=== PATIENT | male | born 1950 | race Caucasian/White ===

== ENCOUNTER 2016-05-17 13:20 | Inpatient (IN) | payer MEDICARE, MEDICAID, OTHER ==
--- NOTE | 2016-05-17 13:45 | ER Document Report ---
ED Medical Screen (RME) - General Chief Complaint: Slurred Speech Stated Complaint: SLURRED SPEACH Mode of Arrival: Ambulatory Information source: Patient Notes: 66-year-old male presents to the emergency department with a friend who reports patient has had intermittent confusion, slurred speech, left-sided facial droop , and forgetfulness over the last month. Pt denies fever or recent illness, chest pain or sob. TRAVEL OUTSIDE OF THE [place] IN LAST 30 DAYS: No - Related Data Allergies/Adverse Reactions: No Known Allergies Allergy (Verified 05/17/16 13:30) Past Medical History - Social History Frequency of alcohol use: None Drug Abuse: None - Past Medical History Cardiac Medical History: Reports: Hx Heart Attack - possible, Hx Hypercholesterolemia, Hx Hypertension Denies: Hx Coronary Artery Disease Pulmonary Medical History: Reports: Hx Asthma Denies: Hx Bronchitis, Hx COPD, Hx Pneumonia, Hx Tuberculosis Neurological Medical History: Denies: Hx Cerebrovascular Accident, Hx Seizures Renal/ Medical History: Denies: Hx Peritoneal Dialysis Musculoskeltal Medical History: Denies Hx Arthritis Psychiatric Medical History: Reports: Hx Depression Past Surgical History: Denies: Hx Pacemaker - Immunizations Hx Diphtheria, Pertussis, Tetanus Vaccination: No - unsure Physical Exam - Vital signs Vitals: Temp Pulse Resp BP Pulse Ox 98.1 F 103 H 26 H 159/95 H 95 05/17/16 13:25 05/17/16 13:25 05/17/16 13:25 05/17/16 13:25 05/17/16 13:25 - General General appearance: Alert In distress: None - Respiratory Respiratory status: No respiratory distress - Neurological Neuro grossly intact: Yes Mary Coma Scale Eye Opening: Spontaneous Martell Coma Scale Verbal: Oriented Martell Coma Scale Motor: Obeys Commands Mary Coma Scale Total: 15 Cranial nerves: Facial palsy - left Motor strength normal: LUE, RUE Course - Vital Signs Vital signs: Temp Pulse Resp BP Pulse Ox 98.1 F 103 H 26 H 159/95 H 95 05/17/16 13:25 05/17/16 13:25 05/17/16 13:25 05/17/16 13:25 05/17/16 13:25
[2016-05-17 14:33] LABS: ABSOLUTE EOSINOPHILS # (AUTO) 0.1 10^3/uL (0.0-0.6); ABSOLUTE LYMPHOCYTES (AUTO) 1.3 10^3/uL (0.5-4.7); ABSOLUTE MONOCYTES (AUTO) 0.6 10^3/uL (0.1-1.4); ABSOLUTE NEUT (AUTO) 5.3 10^3/uL (1.7-8.2); BASOPHILS % (AUTO) 0.4 % (0-2); EOSINOPHILS % (AUTO) 1.5 % (0-6); HEMATOCRIT 45.7 % (37.9-51.0); HEMOGLOBIN 15.4 g/dL (13.5-17.0); HGB HCT DIFFERENCE 0.5; LYMPHOCYTES % (AUTO) 17.5 % (13-45); MEAN CORPUSCULAR HEMOGLOBIN 32.8 pg (27.0-33.4); MEAN CORPUSCULAR HGB CONC 33.6 g/dL (32.0-36.0); MEAN CORPUSCULAR VOLUME 98 fl (80-97); MONOCYTES % (AUTO) 7.7 % (3-13); RED BLOOD COUNT 4.68 10^6/uL (4.35-5.55); RED CELL DISTRIBUTION WIDTH 13.2 % (11.5-14.0); SEGMENTED NEUTROPHILS % (AUTO) 72.9 % (42-78); WHITE BLOOD COUNT 7.3 10^3/uL (4.0-10.5)
[2016-05-17 14:43] LABS: PROTHROMBIN TIME 11.8 SEC (11.4-15.4)
[2016-05-17 14:44] LABS: PARTIAL THROMBOPLASTIN TIME 29.5 SEC (23.5-35.8)
[2016-05-17 14:47] LABS: ALANINE AMINOTRANSFERASE 28 U/L (21-72); ALBUMIN 3.6 g/dL (3.5-5.0); ALKALINE PHOSPHATASE 71 U/L (38-126); ANION GAP 10 (5-19); ASPARTATE AMINO TRANSFERASE 21 U/L (17-59); BILIRUBIN,TOTAL 0.5 mg/dL (0.2-1.3); BLOOD UREA NITROGEN 18 mg/dL (7-20); CALCIUM 9.8 mg/dL (8.4-10.2); CARBON DIOXIDE 26 mmol/L (22-30); CHLORIDE 107 mmol/L (98-107); CREATINE KINASE 52 U/L (55-170); CREATININE RESULT 0.65 mg/dL (0.52-1.25); GLUCOSE 140 mg/dL (75-110); SODIUM 143.3 mmol/L (137-145)
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
[2016-05-17 14:59] LABS: CREATINE KINASE MB 3.08 ng/mL (<4.55)
[2016-05-17 15:03] LABS: TROPONIN I 0.137 ng/mL
--- NOTE | 2016-05-17 15:20 | EKG REPORT ---
SEVERITY:- ABNORMAL ECG - SINUS RHYTHM PROBABLE LEFT ATRIAL ABNORMALITY RIGHT BUNDLE BRANCH BLOCK PROBABLE INFERIOR INFARCT, AGE INDETERMINATE : Confirmed by: Vivian Laura MD 17-May-2016 15:19:44
[2016-05-17 16:14] LABS: APPEARANCE,URINE SLIGHTLY-CLOUDY; BILIRUBIN,URINE NEGATIVE (NEGATIVE); CALCIUM OXALATE CRYSTALS,URINE MANY /HPF; GLUCOSE, URINE NEGATIVE (NEGATIVE); KETONES,URINE NEGATIVE (NEGATIVE); LEUKOCYTE ESTERASE,URINE NEGATIVE (NEGATIVE); NITRITE,URINE NEGATIVE (NEGATIVE); PROTEIN,URINE NEGATIVE (NEGATIVE); URINE SPECIFIC GRAVITY 1.028; UROBILINOGEN,URINE NEGATIVE mg/dL (<2.0)
[2016-05-17] MEDS ORDERED: ONDANSETRON HCL INJ/PF 4 MG/2 ML SDV IV PRN (17:31)
[2016-05-17] MEDS ORDERED: ACETAMINOPHEN 325 MG TABLET PO PRN (17:31)
[2016-05-17] MEDS ORDERED: METOPROLOL TARTRATE PF/INJ 5 MG/5 ML SDV IV PRN (17:55)
[2016-05-17] MEDS ORDERED: ALBUTEROL SULFATE 0.083% NEB 2.5 MG/3 ML AMPUL NEB PRN (18:18)
--- NOTE | 2016-05-17 18:21 | PDOC H&P ---
History of Present Illness Admission Date/PCP: 05/17/16 15:49 STEVE BO MD Patient complains of: Slurred speech History of Present Illness: ANSELMO CABEZAS is a 66 year old male that was accompanied to the emergency department by a long time friend with four-week history of slurred speech and unsteady gait. Patient is also had some minor behavioral issues and forgetfulness over the same period of time. Patient states that he does not have a history of irregular heart rhythm, however he takes Xarelto 20 mg daily. Upon review of prior visits he does have a history of atrial fibrillation/ flutter. He also has a history of cardiomyopathy with a last documented ejection fraction and 20/15 of 35-40%. EKG shows a sinus rhythm today with a right bundle branch block that is old as compared to EKG from 2015. Patient apparently had a cardiology evaluation in [facility] and was told he had coronary artery disease but had no intervention done. Patient has also had left lower extremity stent placed by Dr. Andres iJmenez. Patient continues to smoke despite coronary artery disease and peripheral vascular disease. Medications listed below have not been accurately verified. Patient's medication list that he has present indicate that he takes Xarelto 20 mg daily, aspirin 81 mg daily, Lasix 20 mg daily, metoprolol tartrate 25 mg twice daily, potassium chloride 10 mEq daily, Lipitor 40 mg daily, multivitamin , Effexor 37.5 g daily Past Medical History Cardiac Medical History: Reports: Myocardial Infarction - possible, Hyperlipidema, Hypertension Denies: Coronary Artery Disease Pulmonary Medical History: Reports: Asthma, Chronic Obstructive Pulmonary Disease (COPD) Denies: Bronchitis, Pneumonia, Tuberculosis Neurological Medical History: Reports: Ischemic CVA Denies: Seizures Musculoskeltal Medical History: Denies: Arthritis Psychiatric Medical History: Reports: Depression Hematology: Denies: Anemia Past Surgical History Past Surgical History: Reports: Vascular Surgery - Left lower extremity stent Denies: Pacemaker Social History Information Source: Patient Lives with: Friend Smoking Status: Current Every Day Smoker Frequency of Alcohol Use: Occasional Hx Recreational Drug Use: Yes Drugs: Marijuana Hx Prescription Drug Abuse: No - Advance Directive Resuscitation Status: Full Code Family History Family History: CAD Parental Family History Reviewed: Yes Children Family History Reviewed: Yes Sibling(s) Family History Reviewed.: Yes Medication/Allergy Allergies/Adverse Reactions: No Known Allergies Allergy (Verified 05/17/16 13:30) Review of Systems Constitutional: ABSENT: chills, fever(s), headache(s), weight gain, weight loss Eyes: ABSENT: visual disturbances Ears: ABSENT: hearing changes Cardiovascular: ABSENT: chest pain, dyspnea on exertion, edema, orthropnea, palpitations Respiratory: ABSENT: cough, hemoptysis Gastrointestinal: ABSENT: abdominal pain, constipation, diarrhea, hematemesis, hematochezia, nausea, vomiting Genitourinary: ABSENT: dysuria, hematuria Musculoskeletal: ABSENT: joint swelling Integumentary: ABSENT: rash, wounds Neurological: PRESENT: abnormal gait, abnormal speech. ABSENT: confusion, dizziness, focal weakness, syncope Psychiatric: ABSENT: anxiety, depression, homidical ideation, suicidal ideation Endocrine: ABSENT: cold intolerance, heat intolerance, polydipsia, polyuria Hematologic/Lymphatic: ABSENT: easy bleeding, easy bruising Physical Exam Vital Signs: Temp Pulse Resp BP Pulse Ox 98.1 F 103 H 26 H 159/95 H 98 05/17/16 13:25 05/17/16 13:25 05/17/16 13:25 05/17/16 13:25 05/17/16 13:32 PHYSICAL EXAM: GENERAL: Appears well, no acute distress HEENT: Normocephalic, no scleral icterus, conjunctiva clear, EOEM intact, PERRLA , moist mucous membranes NECK: trachea midline, no thyromegally RESPIRATORY: Clear to auscultation, no wheezes/rhonchi CARDIAC: Regular rate and rhythm, no murmur/kim/rub ABDOMEN: Soft, no distension, no tenderness, no guarding, normal bowel sounds, negative Fraser sign RECTAL: deferred : deferred EXTREMITIES: No edema, cyanosis, clubbing MUSCULOSKELETAL: No joint swelling or deformity VASCULAR: normal peripheral pulses NEUROLOGIC: Alert, oriented to person/place/time, mild dysarthria, left facial droop, 5/5 strength in all extremities, tactile sensation intact in all extremities SKIN: No rash, no wounds, no worrisome skin lesions PSYCHIATRIC: Normal mood, normal affect Results Laboratory Results: Labs- All tests 24 hr 05/17/16 05/17/16 05/17/16 14:16 14:16 14:16 WBC 7.3 RBC 4.68 Hgb 15.4 Hct 45.7 MCV 98 H MCH 32.8 MCHC 33.6 RDW 13.2 Plt Count 226 Seg Neutrophils % 72.9 Lymphocytes % 17.5 Monocytes % 7.7 Eosinophils % 1.5 Basophils % 0.4 Absolute Neutrophils 5.3 Absolute Lymphocytes 1.3 Absolute Monocytes 0.6 Absolute Eosinophils 0.1 Absolute Basophils 0.0 PT 11.8 INR 0.85 APTT 29.5 Sodium 143.3 Potassium 4.0 Chloride 107 Carbon Dioxide 26 Anion Gap 10 BUN 18 Creatinine 0.65 Est GFR ( Amer) > 60 Est GFR (Non-Af Amer) > 60 Glucose 140 H Calcium 9.8 Total Bilirubin 0.5 Direct Bilirubin 0.0 AST 21 ALT 28 Alkaline Phosphatase 71 Creatine Kinase 52 L CK-MB (CK-2) Troponin I Total Protein 7.0 Albumin 3.6 Urine Color Urine Appearance Urine pH Ur Specific [place] Urine Protein Urine Glucose (UA) Urine Ketones Urine Blood Urine Nitrite Urine Bilirubin Urine Urobilinogen Ur Leukocyte Esterase Urine WBC (Auto) Urine RBC (Auto) U Hyaline Cast (Auto) Squamous Epi Cells Auto Calcium Oxalate Cr Auto Urine Mucus (Auto) Urine Ascorbic Acid 05/17/16 05/17/16 14:16 15:42 WBC RBC Hgb Hct MCV MCH MCHC RDW Plt Count Seg Neutrophils % Lymphocytes % Monocytes % Eosinophils % Basophils % Absolute Neutrophils Absolute Lymphocytes Absolute Monocytes Absolute Eosinophils Absolute Basophils PT INR APTT Sodium Potassium Chloride Carbon Dioxide Anion Gap BUN Creatinine Est GFR ( Amer) Est GFR (Non-Af Amer) Glucose Calcium Total Bilirubin Direct Bilirubin AST ALT Alkaline Phosphatase Creatine Kinase CK-MB (CK-2) 3.08 Troponin I 0.137 Total Protein Albumin Urine Color YELLOW Urine Appearance SLIGHTLY-CLOUDY Urine pH 5.0 Ur Specific [place] 1.028 Urine Protein NEGATIVE Urine Glucose (UA) NEGATIVE Urine Ketones NEGATIVE Urine Blood SMALL H Urine Nitrite NEGATIVE Urine Bilirubin NEGATIVE Urine Urobilinogen NEGATIVE Ur Leukocyte Esterase NEGATIVE Urine WBC (Auto) 3 Urine RBC (Auto) 4 U Hyaline Cast (Auto) 7 Squamous Epi Cells Auto <1 Calcium Oxalate Cr Auto MANY Urine Mucus (Auto) MANY Urine Ascorbic Acid NEGATIVE EKG Comments: Sinus rhythm, old right bundle branch block, left atrial abnormality Impressions: Chest X-Ray 05/17/16 13:32 IMPRESSION: No acute findings Head CT 05/17/16 13:35 IMPRESSION: Nonhemorrhagic early subacute right frontal infarct Motion artifact Assessment & Plan - Diagnosis (1) Acute ischemic stroke Is this a current diagnosis for this admission?: YesPlan: Patient will be admitted to telemetry unit on stroke protocol. Continue aspirin and Xarelto. Continue Lipitor. PT/OT evaluation. Check MRI of the brain. Check carotid Doppler. (2) Paroxysmal atrial fibrillation Is this a current diagnosis for this admission?: YesPlan: Continue metoprolol for heart rate control. Patient currently in sinus rhythm. Continue Xarelto. (3) Hypertension Is this a current diagnosis for this admission?: Yes (4) Tobacco abuse Is this a current diagnosis for this admission?: Yes (5) Ambulatory dysfunction Is this a current diagnosis for this admission?: Yes (6) Coronary artery disease Qualifiers: Coronary Disease-Associated Artery/Lesion type: [place] artery [place] vs. transplanted heart: [place] heart Associated angina: without angina Qualified Code(s): I25.10 - Atherosclerotic heart disease of [place] coronary artery without angina pectoris Is this a current diagnosis for this admission?: YesPlan: Continue aspirin, beta regine, Lipitor. Patient has equivocal troponin. He is chest pain-free. Check serial cardiac enzymes. (7) Peripheral vascular disease Is this a current diagnosis for this admission?: YesPlan: Patient has had prior left lower extremity stent placed by Dr. Jimenez in [facility]. Continue current medications. Patient is discontinue smoking. (8) CHF (congestive heart failure) Qualifiers: Congestive heart failure type: systolic Congestive heart failure chronicity: chronic Qualified Code(s): I50.22 - Chronic systolic ( congestive) heart failure Is this a current diagnosis for this admission?: YesPlan: Patient has chronic decompensated congestive heart failure with last known ejection fraction of 35-40% on echocardiogram in 2014. Continue metoprolol, lisinopril, Lasix. (9) COPD (chronic obstructive pulmonary disease) Is this a current diagnosis for this admission?: Yes - Time Time Spent: Greater than 70 Minutes
[2016-05-17 20:00] LABS: CREATINE KINASE MB 2.51 ng/mL (<4.55); TROPONIN I 0.149 ng/mL
[2016-05-17] MEDS ORDERED: ATORVASTATIN CALCIUM 40 MG TABLET PO SCH (22:00)
[2016-05-17] MEDS ORDERED: HEPARIN SOD (PORCINE) 5,000 UNIT/ML 1 ML SYRINGE SUBCUT SCH (22:00)
[2016-05-17] MEDS: METOPROLOL TARTRATE 25 MG TABLET PO SCH (23:31)
[2016-05-18 01:05] LABS: CREATINE KINASE MB 1.99 ng/mL (<4.55)
[2016-05-18 01:09] LABS: TROPONIN I 0.136 ng/mL
[2016-05-18 06:42] LABS: ABSOLUTE EOSINOPHILS # (AUTO) 0.1 10^3/uL (0.0-0.6); ABSOLUTE LYMPHOCYTES (AUTO) 1.2 10^3/uL (0.5-4.7); ABSOLUTE MONOCYTES (AUTO) 0.6 10^3/uL (0.1-1.4); BASOPHILS % (AUTO) 0.4 % (0-2); EOSINOPHILS % (AUTO) 1.4 % (0-6); HEMATOCRIT 39.2 % (37.9-51.0); HEMOGLOBIN 13.5 g/dL (13.5-17.0); HGB HCT DIFFERENCE 1.3; MEAN CORPUSCULAR HEMOGLOBIN 33.4 pg (27.0-33.4); MEAN CORPUSCULAR HGB CONC 34.4 g/dL (32.0-36.0); MEAN CORPUSCULAR VOLUME 97 fl (80-97); MONOCYTES % (AUTO) 8.6 % (3-13); RED BLOOD COUNT 4.03 10^6/uL (4.35-5.55); RED CELL DISTRIBUTION WIDTH 13.3 % (11.5-14.0); SEGMENTED NEUTROPHILS % (AUTO) 72.6 % (42-78); WHITE BLOOD COUNT 6.9 10^3/uL (4.0-10.5)
[2016-05-18 06:53] LABS: ANION GAP 9 (5-19); BLOOD UREA NITROGEN 22 mg/dL (7-20); CALCIUM 9.3 mg/dL (8.4-10.2); CARBON DIOXIDE 26 mmol/L (22-30); CHLORIDE 106 mmol/L (98-107); CHOLESTEROL 214.73 mg/dL (0-200); CREATINE KINASE 41 U/L (55-170); CREATININE RESULT 0.68 mg/dL (0.52-1.25); Direct HDL 44 mg/dL (>40); GLUCOSE 120 mg/dL (75-110); POTASSIUM 4.2 mmol/L (3.6-5.0); SODIUM 140.7 mmol/L (137-145); TRIGLYCERIDES 85 mg/dL (<150)
[2016-05-18 07:04] LABS: DIRECT LDL 158 mg/dL (<100)
[2016-05-18 07:05] LABS: CREATINE KINASE MB 2.03 ng/mL (<4.55)
[2016-05-18 07:13] LABS: TROPONIN I 0.118 ng/mL
[2016-05-18] MEDS ORDERED: POTASSIUM CHLORIDE 10 MEQ TABLET.SA PO SCH (10:00)
[2016-05-18] MEDS ORDERED: ASPIRIN 81 MG TABLET, ENT COATED PO SCH (10:00)
[2016-05-18] MEDS ORDERED: FUROSEMIDE 20 MG TABLET PO SCH (10:00)
[2016-05-18] MEDS ORDERED: VENLAFAXINE HCL 37.5 MG CAP.SR.24H PO SCH (10:00)
[2016-05-18] MEDS ORDERED: LISINOPRIL 10 MG TABLET PO SCH (10:00)
[2016-05-18] MEDS: METOPROLOL TARTRATE 25 MG TABLET PO SCH (10:57)
--- NOTE | 2016-05-18 16:00 | PDOC PROGRESS REPORT ---
Subjective Progress Note for:: 05/18/16 Subjective:: Todd is a 66-year-old man who was admitted on 05/17/2016 with a four-week history of slurred speech, unsteady gait, forgetfulness, and minor behavioral issues. Has a past history of coronary artery disease, peripheral arterial disease and atrial fibrillation. Home medications include aspirin, beta regine Xarelto. CT of the brain showed a nonhemorrhagic right frontal infarct which was early or subacute. The MRI seems to confirm that. This afternoon, the patient was found by the ICU nurse to be ambulating the epperson and smoking a cigarette. Physical Exam Vital Signs: Temp Pulse Resp BP Pulse Ox 98.6 F 55 L 16 153/72 H 96 05/18/16 12:00 05/18/16 12:00 05/18/16 12:00 05/18/16 12:00 05/18/16 12:00 Intake & Output 05/17/16 05/18/16 05/19/16 06:59 06:59 06:59 Intake Total 150 Output Total 150 Balance 0 Weight 112.4 kg General appearance: PRESENT: no acute distress, well-developed, well-nourished Head exam: PRESENT: atraumatic, normocephalic Eye exam: PRESENT: conjunctiva pink, EOMI, PERRLA. ABSENT: scleral icterus Ear exam: PRESENT: normal external ear exam Mouth exam: PRESENT: moist, tongue midline Neck exam: PRESENT: full ROM. ABSENT: carotid bruit, JVD, lymphadenopathy, thyromegaly Respiratory exam: PRESENT: clear to auscultation teresa, unlabored. ABSENT: rales , rhonchi, wheezes Cardiovascular exam: PRESENT: RRR. ABSENT: diastolic murmur, rubs, systolic murmur Pulses: PRESENT: normal dorsalis pedis pul Vascular exam: PRESENT: normal capillary refill GI/Abdominal exam: PRESENT: normal bowel sounds, soft. ABSENT: distended, guarding, mass, organolmegaly, rebound, tenderness Rectal exam: PRESENT: deferred Extremities exam: PRESENT: full ROM. ABSENT: calf tenderness, clubbing, pedal edema Musculoskeletal exam: PRESENT: ambulatory Neurological exam: PRESENT: alert, awake, other - Dysarthria Psychiatric exam: PRESENT: other - Inconsistently follows commands.. ABSENT: homicidal ideation, suicidal ideation Skin exam: PRESENT: dry, intact, warm. ABSENT: cyanosis, rash Results Laboratory Results: 05/18/16 06:30 05/18/16 06:30 05/18/16 05/18/16 06:30 06:30 WBC 6.9 RBC 4.03 L Hgb 13.5 Hct 39.2 MCV 97 MCH 33.4 MCHC 34.4 RDW 13.3 Plt Count 224 Seg Neutrophils % 72.6 Lymphocytes % 17.0 Monocytes % 8.6 Eosinophils % 1.4 Basophils % 0.4 Absolute Neutrophils 5.0 Absolute Lymphocytes 1.2 Absolute Monocytes 0.6 Absolute Eosinophils 0.1 Absolute Basophils 0.0 Sodium 140.7 Potassium 4.2 Chloride 106 Carbon Dioxide 26 Anion Gap 9 BUN 22 H Creatinine 0.68 Est GFR ( Amer) > 60 Est GFR (Non-Af Amer) > 60 Glucose 120 H Calcium 9.3 Triglycerides 85 Cholesterol 214.73 H LDL Cholesterol Direct 158 H VLDL Cholesterol 17.0 HDL Cholesterol 44 05/17/16 05/17/16 05/18/16 19:10 19:10 00:20 Creatine Kinase 52 L 52 L CK-MB (CK-2) 2.51 Troponin I 0.149 05/18/16 05/18/16 05/18/16 00:20 06:30 06:30 Creatine Kinase 41 L CK-MB (CK-2) 1.99 2.03 Troponin I 0.136 0.118 Impressions: Head MRI 05/17/16 00:00 IMPRESSION: Positive for acute or sub-acute infarction in the right frontotemporal region. Chest X-Ray 05/17/16 13:32 IMPRESSION: No acute findings Head CT 05/17/16 13:35 IMPRESSION: Nonhemorrhagic early subacute right frontal infarct Motion artifact Carotid Doppler Study 05/18/16 00:00 IMPRESSION: Bilateral internal carotid artery occlusion. Atherosclerotic plaque at the distal left common carotid artery extends into the proximal left external carotid artery. There is greater than 70% stenosis of the distal left common carotid artery, and greater than 70% stenosis of the left external carotid artery Assessment & Plan - Diagnosis (1) Acute ischemic stroke Is this a current diagnosis for this admission?: YesPlan: This right frontotemporal nonhemorrhagic stroke clinically occurred about one month ago. This explains his four-week history of slurred speech, unsteady gait , forgetfulness and minor behavioral issues. He is already under proper treatment with aspirin, Xarelto, and statin medication. (2) Occlusion and stenosis of bilateral carotid arteries Is this a current diagnosis for this admission?: YesPlan: The patient is already on aspirin, Xarelto, and a statin. The patient has a stroke which clinically occurred about one month ago. He will be referred for outpatient vascular surgical consultation. (3) Ambulatory dysfunction Is this a current diagnosis for this admission?: YesPlan: PT, OT and ST evaluations. (4) Coronary artery disease Qualifiers: Coronary Disease-Associated Artery/Lesion type: [place] artery [place] vs. transplanted heart: [place] heart Associated angina: without angina Qualified Code(s): I25.10 - Atherosclerotic heart disease of [place] coronary artery without angina pectoris Is this a current diagnosis for this admission?: YesPlan: Continue current Rx. (5) Hypertension Is this a current diagnosis for this admission?: YesPlan: Satisfactory control. Continue current Rx. (6) Paroxysmal atrial fibrillation Is this a current diagnosis for this admission?: YesPlan: Rate controlled. Continue current Rx. (7) Peripheral vascular disease Is this a current diagnosis for this admission?: YesPlan: Continue aspirin and statin Rx. (8) Tobacco abuse Is this a current diagnosis for this admission?: YesPlan: The patient was advised to stop smoking. (9) CHF (congestive heart failure) Qualifiers: Congestive heart failure type: systolic Congestive heart failure chronicity: chronic Qualified Code(s): I50.22 - Chronic systolic ( congestive) heart failure Is this a current diagnosis for this admission?: YesPlan: Compensated. Continue current Rx. (10) COPD (chronic obstructive pulmonary disease) Is this a current diagnosis for this admission?: No - Time Time Spent with patient: 25-34 minutes Smoking Cessation Education: 3 to 10 minutes Medications reviewed and adjusted accordingly: Yes Anticipated discharge: Home Within: within 48 hours
[2016-05-18 16:11] VITALS: BP 125/68
[2016-05-18] MEDS ORDERED: RIVAROXABAN 10 MG TABLET PO SCH (17:00)
== END 2016-05-18 19:15 | disposition home or self-care (01) | DRG 67 ==
LOC: ER 13:20 → EH 15:49 → UNDOADMIN 15:49 → EH 17:32 → ICU 05-18 10:16
PROVIDERS: ADMIT Family Medicine; ATTEND Family Medicine
DX: I65.23 Occlusion and stenosis of bilateral carotid arteries (principal); I63.9 Cerebral infarction, unspecified; I50.22 Chronic systolic (congestive) heart failure; I42.9 Cardiomyopathy, unspecified; R47.81 Slurred speech; I25.10 Atherosclerotic heart disease of native coronary artery without angina pectoris; I48.0 Paroxysmal atrial fibrillation; I10 Essential (primary) hypertension; E78.5 Hyperlipidemia, unspecified; J44.9 Chronic obstructive pulmonary disease, unspecified; I73.9 Peripheral vascular disease, unspecified; R26.9 Unspecified abnormalities of gait and mobility; F17.210 Nicotine dependence, cigarettes, uncomplicated; I25.2 Old myocardial infarction; Z79.01 Long term (current) use of anticoagulants; Z86.73 Personal history of transient ischemic attack (TIA), and cerebral infarction without residual deficits
CPT/HCPCS: 36415; 70450; 70551; 71020; 80048; 80053; 80061; 81001; 82550; 82553; 84484; 85025; 85610; 85730; 93005; 93010; 93880; 99291; G8978-GP; G8979-GP; G8980-GP; G8987-GO; G8988-GO; G8989-GO; G8999-GN; G9186-GN; J3490

== ENCOUNTER 2016-08-15 21:01 | Emergency (ER) | payer MEDICARE, OTHER ==
--- NOTE | 2016-08-15 22:29 | RADIOLOGY REPORT (SQ) ---
EXAM DESCRIPTION: HAND LEFT 3 VIEWS COMPLETED DATE/TIME: 08/15/2016 10:16 pm REASON FOR STUDY: fall COMPARISON: None. EXAM PARAMETERS: NUMBER OF VIEWS: Three views. TECHNIQUE: AP, lateral and oblique radiographic images acquired of the left hand. LIMITATIONS: None. FINDINGS: MINERALIZATION: Normal. BONES: No acute fracture or dislocation. No worrisome bone lesions. JOINTS: There is joint space narrowing in the proximal and distal interphalangeal joints as well is a carpal bones. SOFT TISSUES: There is diffuse soft tissue swelling. OTHER: No other significant finding. IMPRESSION: Diffuse soft tissue swelling. Degenerative changes. No acute fracture or dislocation. TECHNICAL DOCUMENTATION: JOB ID: [id number] [email or web address]- All Rights Reserved
[2016-08-15] MEDS ORDERED: CEPHALEXIN 500 MG CAPSULE PO ONE (23:48)
--- NOTE | 2016-08-15 23:51 | ER Document Report ---
ED General - General Chief Complaint: Hand Injury Stated Complaint: HAND SWELLING Time Seen by Provider: 08/15/16 23:03 Notes: Patient is a 66-year-old male with past medical history of a prior stroke, active tobacco abuser, remote history of a lower extremity DVT who presents with approximately 1 week of left upper extremity swelling and pain. Apparently initially triage patient reported that he had had a mechanical fall but to me he states "I do not actually know what happened I just assumed I fell because it was so swollen." The patient and his friend at the bedside admit that he has difficulty with memory at baseline after the stroke. He has not noted that anything seems to improve or worsens swelling of his extremity. He does note a dull, constant throbbing pain to the area. He has not seen a primary care doctor regarding today's concerns. Denies any history of similar symptoms in the past. TRAVEL OUTSIDE OF THE [place] IN LAST 30 DAYS: No - Related Data Allergies/Adverse Reactions: No Known Allergies Allergy (Verified 05/17/16 13:30) Past Medical History - General Information source: Patient - Social History Smoking Status: Current Every Day Smoker Chew tobacco use (# tins/day): No Frequency of alcohol use: Occasional Drug Abuse: Marijuana Family History: Reviewed & Not Pertinent Patient has suicidal ideation: No Patient has homicidal ideation: No - Past Medical History Cardiac Medical History: Reports: Hx Heart Attack - possible, Hx Hypercholesterolemia, Hx Hypertension Denies: Hx Coronary Artery Disease Pulmonary Medical History: Reports: Hx Asthma Denies: Hx Bronchitis, Hx COPD, Hx Pneumonia, Hx Tuberculosis Neurological Medical History: Denies: Hx Cerebrovascular Accident, Hx Seizures Renal/ Medical History: Denies: Hx Peritoneal Dialysis Musculoskeltal Medical History: Denies Hx Arthritis Psychiatric Medical History: Reports: Hx Depression Past Surgical History: Reports: Hx Vascular Surgery - Left lower extremity stent. Denies: Hx Pacemaker - Immunizations Hx Diphtheria, Pertussis, Tetanus Vaccination: No - unsure Hx Pneumococcal Vaccination: 12/24/11 Review of Systems - Review of Systems Notes: Constitutional: Negative for fever. HENT: Negative for sore throat. Eyes: Negative for visual changes. Cardiovascular: Negative for chest pain. Respiratory: Negative for shortness of breath. Gastrointestinal: Negative for abdominal pain, vomiting or diarrhea. Genitourinary: Negative for dysuria. Musculoskeletal: Positive for left upper extremity swelling and pain Skin: Negative for rash. Neurological: Negative for headaches, weakness or numbness. 10 point ROS negative except as marked above and in HPI. Physical Exam - Vital signs Vitals: Temp Pulse Resp BP Pulse Ox 98.6 F 96 20 174/95 H 95 08/15/16 21:27 08/15/16 21:27 08/15/16 21:27 08/15/16 21:27 08/15/16 21:27 Interpretation: Hypertensive Notes: PHYSICAL EXAMINATION: GENERAL: Well-appearing, well-nourished and in no acute distress. HEAD: Atraumatic, normocephalic. EYES: Pupils equal round and reactive to light, extraocular movements intact, sclera anicteric, conjunctiva are normal. ENT: nares patent, oropharynx clear without exudates. Moist mucous membranes. NECK: Normal range of motion, supple without lymphadenopathy LUNGS: Breath sounds clear to auscultation bilaterally and equal. No wheezes rales or rhonchi. HEART: Regular rate and rhythm without murmurs ABDOMEN: Soft, nontender, normoactive bowel sounds. No guarding, no rebound. No masses appreciated. EXTREMITIES: The entire left hand, forearm extending just above the elbow is erythematous, swollen but not significantly painful to palpation. No crepitus. Compartments feel sof. No findings on the right upper extremity of the bilateral lower extremities. NEUROLOGICAL: No focal neurological deficits. Moves all extremities spontaneously and on command. PSYCH: Normal mood, normal affect. SKIN: Warm, Dry, normal turgor, no rashes or lesions noted. Course - Re-evaluation Re-evalutation: 08/15/16 23:48 Patient presents with diffuse left upper extremity swelling to the level just above the elbow area is diffusely erythematous with mild pain. She did have a history of a CVA with residual left-sided weakness which she states is unchanged today. He does have a history of a lower extremity DVT in the past but is not currently on any anticoagulation. Contrary to triage note, patient states he did not actually fall that he is aware of or can recall but merely assumed that he had fallen due to his hand being swollen. There is no evidence of trauma on exam and his x-rays without evidence of an acute fracture. Primary differential considerations at this point are a cellulitis versus a possible upper extremity DVT. I will start patient on cephalexin here in the emergency department [place]. I have asked that he please return in the emergency department in the morning for an upper extremity ultrasound to definitively exclude a DVT. At this time will discharge with return precautions and follow-up recommendations. Verbal discharge instructions given a the bedside and opportunity for questions given. Medication warnings reviewed. Patient is in agreement with this plan and has verbalized understanding of return precautions and the need for primary care follow-up in the next 24-72 hours. - Vital Signs Vital signs: Temp Pulse Resp BP Pulse Ox 98.6 F 91 17 155/89 H 97 08/15/16 21:27 08/16/16 00:04 08/16/16 00:04 08/16/16 00:04 08/16/16 00:04 - Diagnostic Test Radiology reviewed: Image reviewed, Reports reviewed Radiology results interpreted by me: 08/16/16 02:43 Left hand x-ray: No acute fracture, diffuse soft tissue swelling Discharge - Discharge Clinical Impression: Left upper extremity swelling Condition: Good Disposition: HOME, SELF-CARE Additional Instructions: Please return to the emergency department in the morning for an ultrasound of your left arm to exclude a clot as the source of the swelling. Please take the antibiotics as directed and if the ultrasound is normal tomorrow complete the antibiotic course. Please return sooner if you develop worsening pain, fever greater than 101F, or any other symptoms that are worrisome to you. Prescriptions: Cephalexin Monohydrate [Keflex 500 mg Capsule] 500 mg PO QID #28 capsule
[2016-08-16 00:05] VITALS: BP 155/89
== END 2016-08-16 00:04 | disposition home or self-care (01) ==
LOC: ER 21:01
DX: M79.89 Other specified soft tissue disorders (principal); Z86.718 Personal history of other venous thrombosis and embolism; F17.200 Nicotine dependence, unspecified, uncomplicated
CPT/HCPCS: 99283; 73130; A9270

== ENCOUNTER → 2016-08-17 | Outpatient (CLI) | payer MEDICARE ==
--- NOTE | 2016-08-17 12:52 | XCELERA REPORT ---
[address] [address] Upper Extremity Venous Evaluation Name: ANSELMO CABEZAS Age: 66 yrs Gender: Male : 1950 Patient Status: Outpatient Patient Location: Study Date: 08/17/2016 10:47 AM Procedure: Unilateral duplex scan of the left upper extremity veins was performed, including responses to compression and other maneuvers. Reason For Study: LUE SWELLING Ordering Physician: LAURENT MYERS Performed By: Brenda Hubbard Left Sided Venous Evaluation Normal vessel filling wall to wall, compression and augmentation as well as Colour flow down to the forearm veins. Critical Findings Discussed with Dr Myers at about 1000. Interpretation Summary Normal compression, patency, spontaneous and phasic flow of the left upper extremity veins. : LAURENT MYERS > Aldair Castillo
== END ==
LOC: SP 10:37
PROVIDERS: ATTEND Emergency Medicine
DX: M79.89 Other specified soft tissue disorders (principal)
CPT/HCPCS: 93971

== ENCOUNTER 2017-12-12 20:09 | Inpatient (IN) | payer MEDICARE ==
--- NOTE | 2017-12-12 20:58 | RADIOLOGY REPORT (SQ) ---
EXAM DESCRIPTION: CHEST SINGLE VIEW COMPLETED DATE/TIME: 12/12/2017 8:46 pm REASON FOR STUDY: hypoxia COMPARISON: 05/17/2016 TECHNIQUE: Single frontal radiographic view of the chest acquired. NUMBER OF VIEWS: One view. LIMITATIONS: None. FINDINGS: LUNGS AND PLEURA: No pneumothorax. Right basilar and left mid lung patchy airspace opacit ies. No significant pleural effusion. MEDIASTINUM AND HILAR STRUCTURES: Stable. HEART AND VASCULAR STRUCTURES: Stable. BONES: No acute findings. HARDWARE: None in the chest. OTHER: No other significant finding. IMPRESSION: Right basilar and left mid lung patchy airspace opacities. TECHNICAL DOCUMENTATION: JOB ID: [id number] [email or web address]- All Rights Reserved Reading location - IP/workstation name: [email or web address]
[2017-12-12 20:59] LABS: ABSOLUTE EOSINOPHILS # (AUTO) 0.1 10^3/uL (0.0-0.6); ABSOLUTE LYMPHOCYTES (AUTO) 0.5 10^3/uL (0.5-4.7); ABSOLUTE MONOCYTES (AUTO) 0.6 10^3/uL (0.1-1.4); ABSOLUTE NEUT (AUTO) 7.6 10^3/uL (1.7-8.2); BASOPHILS % (AUTO) 0.3 % (0-2); EOSINOPHILS % (AUTO) 1.6 % (0-6); HEMATOCRIT 49.8 % (37.9-51.0); HEMOGLOBIN 16.6 g/dL (13.5-17.0); LYMPHOCYTES % (AUTO) 5.2 % (13-45); MEAN CORPUSCULAR HGB CONC 33.3 g/dL (32.0-36.0); MEAN CORPUSCULAR VOLUME 96 fl (80-97); PLATELET COUNT 178 10^3/uL (150-450); RED BLOOD COUNT 5.18 10^6/uL (4.35-5.55); RED CELL DISTRIBUTION WIDTH 15.2 % (11.5-14.0); SEGMENTED NEUTROPHILS % (AUTO) 85.9 % (42-78); TOTAL CELLS COUNTED % (AUTO) 100 %; WHITE BLOOD COUNT 8.8 10^3/uL (4.0-10.5)
[2017-12-12 21:18] LABS: ALANINE AMINOTRANSFERASE 22 U/L (21-72); ALBUMIN 3.3 g/dL (3.5-5.0); ALKALINE PHOSPHATASE 54 U/L (38-126); ANION GAP 6 (5-19); ASPARTATE AMINO TRANSFERASE 22 U/L (17-59); BILIRUBIN,DIRECT 0.6 mg/dL (0.0-0.4); BILIRUBIN,TOTAL 1.2 mg/dL (0.2-1.3); BLOOD UREA NITROGEN 23 mg/dL (7-20); CALCIUM 9.1 mg/dL (8.4-10.2); CARBON DIOXIDE 34 mmol/L (22-30); CHLORIDE 101 mmol/L (98-107); GLUCOSE 111 mg/dL (75-110); POTASSIUM 3.5 mmol/L (3.6-5.0); SODIUM 140.8 mmol/L (137-145); TOTAL PROTEIN 6.6 g/dL (6.3-8.2)
--- NOTE | 2017-12-12 21:39 | RADIOLOGY REPORT (SQ) ---
CT head without contrast on 12/12/2017 at 8:48 PM CLINICAL INDICATION: Weakness, history of stroke TECHNIQUE: Multiple axial images are obtained throughout the head without the administration of contrast. This exam was performed according to our departmental dose-optimization program, which includes automated exposure control, adjustment of the mA and/or kV according to patient size and/or use of iterative reconstruction technique. Total DLP is 1028.78 mGy*cm. COMPARISON: None FINDINGS: There are old bilateral frontal infarcts. There is an old right basal ganglia infarct. There is generalized cerebral atrophy. There is no hydrocephalus. There is no CT evidence of acute infarct. There is no hemorrhage. There are no abnormal extra-axial fluid collections. There is no mass, mass effect or midline shift. No bony abnormality is noted. IMPRESSION: 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
[2017-12-12] MEDS ORDERED: LEVOFLOXACIN 750 MG/D5W RTU 750 MG/150 ML RTUPB IV ONE (21:42)
[2017-12-12] MEDS ORDERED: RINGERS SOLUTION,LACTATED 1,000 ML IV ONE (21:48)
[2017-12-12] MEDS ORDERED: DEXTROSE 5%-WATER 500 ML with AMIODARONE HCL 900 MG IV PRN ×2 (22:01)
[2017-12-12] MEDS ORDERED: AMIODARONE HCL 150 MG in DEXTROSE 5%-WATER 100 ML IV ONE (22:01)
--- NOTE | 2017-12-12 22:02 | ER Document Report ---
ED General - General Chief Complaint: Weakness Stated Complaint: WEAKNESS Time Seen by Provider: 12/12/17 20:19 Notes: Patient is a 67-year-old male with past medical history of hypertension, hyperlipidemia, atrial fibrillation, ongoing tobacco abuse who presents with cough and "increased weakness per my neighbor". The patient reports that he has had a cough for the past 2-3 days. He states that his neighbor was worried that he could be having a recurrent stroke as he seemed more weak than normal. Urinalysis shows patient to be saturating 86% on room air and does not normally have an oxygen requirement. The patient reports that he has been taking all medications as directed. He denies any increased weakness from his baseline. He denies a fever at home. No nausea, vomiting, headache, neck pain or altered mental status. Nothing improves or worsens his symptoms. He denies any associated chest pain. TRAVEL OUTSIDE OF THE [place] IN LAST 30 DAYS: No - Related Data Allergies/Adverse Reactions: No Known Allergies Allergy (Verified 05/17/16 13:30) Past Medical History - General Information source: Patient - Social History Smoking Status: Current Every Day Smoker Frequency of alcohol use: None Drug Abuse: None Lives with: Alone Family History: Reviewed & Not Pertinent Patient has suicidal ideation: No Patient has homicidal ideation: No - Past Medical History Cardiac Medical History: Reports: Hx Heart Attack - possible, Hx Hypercholesterolemia, Hx Hypertension Denies: Hx Coronary Artery Disease Pulmonary Medical History: Reports: Hx Asthma Denies: Hx Bronchitis, Hx COPD, Hx Pneumonia, Hx Tuberculosis Neurological Medical History: Denies: Hx Cerebrovascular Accident, Hx Seizures Renal/ Medical History: Denies: Hx Peritoneal Dialysis Musculoskeletal Medical History: Denies Hx Arthritis Psychiatric Medical History: Reports: Hx Depression Past Surgical History: Reports: Hx Vascular Surgery - Left lower extremity stent. Denies: Hx Pacemaker - Immunizations Hx Diphtheria, Pertussis, Tetanus Vaccination: No - unsure Hx Pneumococcal Vaccination: 12/24/11 Review of Systems - Review of Systems Notes: Constitutional: Negative for fever. HENT: Negative for sore throat. Eyes: Negative for visual changes. Cardiovascular: Negative for chest pain. Respiratory: Positive for shortness of breath and cough Gastrointestinal: Negative for abdominal pain, vomiting or diarrhea. Genitourinary: Negative for dysuria. Musculoskeletal: Negative for back pain. Skin: Negative for rash. Neurological: Negative for headaches, weakness or numbness. 10 point ROS negative except as marked above and in HPI. Physical Exam - Vital signs Vitals: Resp BP Pulse Ox 11 L 143/71 H 97 12/12/17 20:19 12/12/17 20:19 12/12/17 20:19 Interpretation: Tachypneic Notes: PHYSICAL EXAMINATION: GENERAL: Appears somewhat unwell, no acute distress HEAD: Atraumatic, normocephalic. EYES: Pupils equal round and reactive to light, extraocular movements intact, sclera anicteric, conjunctiva are normal. ENT: nares patent, oropharynx clear without exudates. Moderately dry mucous membranes. NECK: Normal range of motion, supple without lymphadenopathy LUNGS: Mild tachypnea. Wheezes at the right base and left upper lobe. HEART: Irregular regular tachycardia without murmurs ABDOMEN: Soft, nontender, normoactive bowel sounds. No guarding, no rebound. No masses appreciated. EXTREMITIES: Normal range of motion, no pitting or edema. No cyanosis. NEUROLOGICAL: Left facial droop. Moves all extremities spontaneously and on command. PSYCH: Somewhat lethargic but wakes relatively easily, oriented 3 SKIN: Warm, Dry, normal turgor, no rashes or lesions noted. Course - Re-evaluation Re-evalutation: 12/12/17 21:55 Patient presents quite somnolent, wakes up and answers all orientations quickly but rapidly falls back off to sleep. He does wake to loud voice or mildly noxious stimuli but apparently initial staff noted that the patient was not like this at time of presentation. A CT of the head was obtained and does not show any evidence of acute intercranial bleed. The patient was noted to be hypoxic for EMS, 86% on room air and does not normally have an oxygen requirement. A chest x-ray does show a bilateral pneumonia. His initial troponin is also noted to be elevated at 0.106 most probably due to demand mediated ischemia. The patient is also noted to have multiple nonsustained runs of ventricular tachycardia. These are happening quite frequently and he will therefore be started on amiodarone after a load of 150 mg. Will also obtain a stat venous blood gas to evaluate for CO2 retention and immediately order BiPAP as I am concerned the patient is having lower respiratory drive in the setting of supplemental oxygen. The patient is in guarded condition, will require frequent reassessments. 12/12/17 22:37 Venous blood gas does show chronic CO2 retention without evidence of respiratory acidosis. Patient will continue on BiPAP given his altered mental status. Amiodarone infusion has been initiated. Will continue to observe. Patient remains in guarded condition 12/12/17 23:38 Patient has not had any additional runs of ventricular tachycardia since starting the amiodarone infusion. Patient is more alert now on BiPAP. I have discussed this case with Dr. Dan who had requested that I speak to the emergency veterinary assistant on-call Dr. Lomas. I did speak to Dr. Lomas he agreed with ongoing amiodarone infusion and agrees with the patient is appropriate for admission at this hospital. - Vital Signs Vital signs: Temp Pulse Resp BP Pulse Ox 97.7 F 91 12 108/55 L 96 12/12/17 20:20 12/13/17 00:00 12/13/17 00:23 12/13/17 00:01 12/13/17 00:23 - Laboratory Result Diagrams: 12/12/17 20:36 12/12/17 20:36 Laboratory results interpreted by me: 12/12/17 12/12/17 12/12/17 20:36 20:36 20:36 RDW 15.2 H Seg Neutrophils % 85.9 H Lymphocytes % 5.2 L VBG pCO2 VBG HCO3 Potassium 3.5 L Carbon Dioxide 34 H BUN 23 H Glucose 111 H Direct Bilirubin 0.6 H NT-Pro-B Natriuret Pep 7020 H Albumin 3.3 L 12/12/17 21:55 RDW Seg Neutrophils % Lymphocytes % VBG pCO2 69.3 H* VBG HCO3 34.9 H Potassium Carbon Dioxide BUN Glucose Direct Bilirubin NT-Pro-B Natriuret Pep Albumin - Diagnostic Test Radiology reviewed: Image reviewed, Reports reviewed Radiology results interpreted by me: 12/12/17 21:59 Chest x-ray: Bilateral lower lobe pneumonia Critical Care Note - Critical Care Note Total time excluding time spent on procedures (mins): 40 Comments: Critical care time spent obtaining history from patient or surrogate, discussions with consultants, development of treatment plan with patient or surrogate, evaluation of patient's response to treatment, examination of patient , ordering and performing treatments and interventions, ordering and review of laboratory studies, re-evaluation of patient's condition, ordering and review of radiographic studies and review of old charts Discharge - Discharge Clinical Impression: Ventricular tachycardia, Hypoxia Bilateral pneumonia Qualifiers: Pneumonia type: due to unspecified organism Lung location: unspecified part of lung Qualified Code(s): J18.9 - Pneumonia, unspecified organism Condition: Fair Disposition: ADMITTED INPATIENT Admitting Provider: Hospitalist Unit Admitted: [facility]
[2017-12-12] MEDS ORDERED: AMIODARONE HCL INJ 150 MG/3 ML VIAL IV ONE ×2 (22:20→22:45)
[2017-12-12 22:21] LABS: VENOUS BLOOD BASE EXCESS 5.7 mmol/L; VENOUS BLOOD HCO3 34.9 mmol/L (20-32); VENOUS BLOOD PH 7.32 (7.30-7.42)
[2017-12-12 22:31] LABS: VENOUS BLOOD PCO2 69.3 mmHg (35-63)
[2017-12-13] MEDS ORDERED: GLUCAGON,HUMAN RECOMB 1 MG INJ SUBCUT PRN (01:38)
[2017-12-13] MEDS ORDERED: PROMETHAZINE HCL INJ 25 MG/1 ML VIAL IV PRN (01:38)
[2017-12-13] MEDS ORDERED: DEXTROSE 50%-WATER 25 GM/50 ML DISP.SYRIN IV PRN ×2 (01:38)
[2017-12-13] MEDS ORDERED: MAG HYDROX/AL HYDROX/SIMETH SUSP 30 ML UDCUP PO PRN (01:38)
[2017-12-13] MEDS ORDERED: OXYCODONE-ACETAMINOPHEN 5-325 MG TABLET PO PRN (01:38)
[2017-12-13] MEDS ORDERED: DEXTROSE 40% GEL 15 GM TUBE PO PRN ×2 (01:38)
[2017-12-13] MEDS ORDERED: PROMETHAZINE HCL 25 MG TABLET PO PRN (01:38)
[2017-12-13] MEDS ORDERED: CEFTRIAXONE 1 GM/D5W RTU 1 GM/50 ML RTUPB IV ONE (02:00)
[2017-12-13] MEDS ORDERED: PANTOPRAZOLE SODIUM 40 MG VIAL IV ONE ×2 (02:00→09:00)
[2017-12-13] MEDS: IPRATROPIUM/ALBUTEROL 0.5-2.5 MG/3 ML AMPUL NEB SCH ×6 (02:25→20:28)
[2017-12-13 02:35] LABS: APPEARANCE,URINE SLIGHTLY-CLOUDY; BILIRUBIN,URINE NEGATIVE (NEGATIVE); GLUCOSE, URINE NEGATIVE (NEGATIVE); KETONES,URINE NEGATIVE (NEGATIVE); LEUKOCYTE ESTERASE,URINE NEGATIVE (NEGATIVE); NITRITE,URINE NEGATIVE (NEGATIVE); PROTEIN,URINE 30 mg/dL (NEGATIVE); URINE SPECIFIC GRAVITY 1.025
[2017-12-13 02:36] LABS: COLOR,URINE DARK YELLOW
[2017-12-13 02:40] LABS: URINE AMPHETAMINES SCREEN NEGATIVE; URINE BARBITURATES SCREEN NEGATIVE; URINE BENZODIAZEPINES SCREEN NEGATIVE; URINE COCAINE SCREEN NEGATIVE; URINE MARIJUANA (THC) SCREEN NEGATIVE; URINE METHADONE SCREEN NEGATIVE; URINE PHENCYCLIDINE SCREEN NEGATIVE
--- NOTE | 2017-12-13 02:55 | PDOC H&P ---
History of Present Illness Admission Date/PCP: 12/13/17 00:16 JACOB AVALOS PA-C Patient complains of: SOB History of Present Illness: ANSELMO CABEZAS is a 67 year old male who comes to the emergency department who presents with cough and "increased weakness per my neighbor". The patient reports that he has had a cough for the past 2-3 days. He states that his neighbor was worried that he could be having a recurrent stroke as he seemed more weak than normal. Pulsoxymetrie shows patient to be saturating 86% on room air and does not normally have an oxygen requirement, was initiated on BiPAP. The patient reports that he has been taking all medications as directed. He denies any increased weakness from his baseline. He denies a fever at home. No nausea, vomiting, headache, neck pain or altered mental status. Nothing improves or worsens his symptoms. He denies any associated chest pain. In the emergency department shows nonsustained ventricular tachycardia, Cordarone 150 mg IV push given in place on amiodarone infusion. 1 L IV fluids. IV Levaquin. First set of troponin 0 0.106. 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 EKG varies from the first one with sinus rhythm at 85 beats per minutes with RBBB to atrial fibrillation 60-104. Past Medical History Cardiac Medical History: Reports: Myocardial Infarction - possible, Hyperlipidema, Hypertension Denies: Coronary Artery Disease Pulmonary Medical History: Reports: Asthma Denies: Bronchitis, Chronic Obstructive Pulmonary Disease (COPD), Pneumonia, Tuberculosis Neurological Medical History: Denies: Seizures Musculoskeltal Medical History: Denies: Arthritis Psychiatric Medical History: Reports: Depression Hematology: Denies: Anemia Past Surgical History Past Surgical History: Reports: Vascular Surgery - Left lower extremity stent Denies: Pacemaker Social History Lives with: Alone Smoking Status: Current Every Day Smoker Frequency of Alcohol Use: Heavy Hx Recreational Drug Use: Yes Drugs: Marijuana Hx Prescription Drug Abuse: No Family History Family History: Reviewed & Not Pertinent Parental Family History Reviewed: No Children Family History Reviewed: NA Sibling(s) Family History Reviewed.: NA Medication/Allergy Home Medications: Aspirin [Aspirin 81 mg Chewable Tablet] 81 mg PO DAILY 05/17/16 Atorvastatin Calcium [Lipitor 40 mg Tablet] 40 mg PO DAILY 05/17/16 Folic Acid/Multivit-Min/Lutein [Therapeutic-M Tablet] 1 each PO DAILY 05/17/16 Furosemide [Lasix] 20 mg PO DAILY 05/17/16 Lisinopril [Prinivil] 20 mg PO DAILY 05/17/16 Metoprolol Tartrate [Lopressor 25 mg Tablet] 25 mg PO Q12 05/17/16 Nitroglycerin [Nitrostat] 0.4 mg SL PRN PRN 05/17/16 Potassium Chloride 10 meq PO DAILY 05/17/16 Rivaroxaban [Xarelto] 20 mg PO DAILY 05/17/16 Cephalexin Monohydrate [Keflex 500 mg Capsule] 500 mg PO QID #28 capsule Allergies/Adverse Reactions: No Known Allergies Allergy (Verified 05/17/16 13:30) Review of Systems Review of Systems: As outlined above, others negative Physical Exam Vital Signs: Temp Pulse Resp BP Pulse Ox 97.7 F 91 12 108/55 L 96 12/12/17 20:20 12/13/17 00:00 12/13/17 00:23 12/13/17 00:01 12/13/17 00:23 Intake & Output 12/11/17 12/12/17 12/13/17 06:59 06:59 06:59 Intake Total 150 Balance 150 Additional comments: General appearance: Well-developed, well-nourished, alert and cooperative, and appears to be in no acute distress. On BiPAP Head: Normocephalic Eyes: PEERL, EOMI, vision is grossly intact. Ears: External auditory canal and tympanic membranes clear, hearing grossly intact. Nose: No nasal discharge. Throat: Oral cavity and pharynx normal. No inflammation, swelling, exudate or lesions. Neck: Neck supple, nontender without lymphadenopathy, masses or thyromegaly. Cardiac: Normal S1 and S2. No S3, S4 or murmurs. Rhythm is regular. There is no peripheral edema, cyanosis or pallor. Extremities are warm and well perfused. Capillary refill is less than 2 seconds. No carotid bruits. Lungs: Clear to auscultation and percussion, diffused rales, no rhonchi, wheezing or diminished breath sounds. Not using accessory muscles. Abdomen: Positive bowel sounds. Soft. Nondistended, nontender. No guarding or rebound. No masses. No hepatosplenomegaly Extremities: No significant deformity or joint abnormality. No edema. Peripheral pulses intact. No varicosities. Neurological: Cranial nerves II through XII grossly intact. Strength and sensation symmetric and intact throughout. Reflexes 2+ throughout. Skin: Skin normal color, texture and turgor with no lesions or eruptions, warm and dry. Psychiatric: The mental examination revealed the patient was oriented to person , place, and time. The patient was able to demonstrate good judgment on recent , without hallucinations, abnormal affect or abnormal behaviors. Results Laboratory Results: 12/12/17 12/12/17 12/12/17 20:36 20:36 20:36 WBC 8.8 RBC 5.18 Hgb 16.6 Hct 49.8 MCV 96 MCH 32.0 MCHC 33.3 RDW 15.2 H Plt Count 178 Seg Neutrophils % 85.9 H Lymphocytes % 5.2 L Monocytes % 7.0 Eosinophils % 1.6 Basophils % 0.3 Absolute Neutrophils 7.6 Absolute Lymphocytes 0.5 Absolute Monocytes 0.6 Absolute Eosinophils 0.1 Absolute Basophils 0.0 VBG pH VBG pCO2 VBG HCO3 VBG Base Excess Sodium 140.8 Potassium 3.5 L Chloride 101 Carbon Dioxide 34 H Anion Gap 6 BUN 23 H Creatinine 0.82 Est GFR ( Amer) > 60 Est GFR (Non-Af Amer) > 60 Glucose 111 H Calcium 9.1 Magnesium Total Bilirubin 1.2 Direct Bilirubin 0.6 H AST 22 ALT 22 Alkaline Phosphatase 54 Troponin I 0.106 NT-Pro-B Natriuret Pep Total Protein 6.6 Albumin 3.3 L Urine Color Urine Appearance Urine pH Ur Specific [place] Urine Protein Urine Glucose (UA) Urine Ketones Urine Blood Urine Nitrite Urine Bilirubin Urine Urobilinogen Ur Leukocyte Esterase Urine WBC (Auto) Urine RBC (Auto) U Hyaline Cast (Auto) Urine Bacteria (Auto) Urine Mucus (Auto) Urine Ascorbic Acid Urine Opiates Screen Urine Methadone Screen Ur Barbiturates Screen Ur Phencyclidine Scrn Ur Amphetamines Screen U Benzodiazepines Scrn Urine Cocaine Screen U Marijuana (THC) Screen 12/12/17 12/12/17 12/12/17 20:36 20:36 21:55 WBC RBC Hgb Hct MCV MCH MCHC RDW Plt Count Seg Neutrophils % Lymphocytes % Monocytes % Eosinophils % Basophils % Absolute Neutrophils Absolute Lymphocytes Absolute Monocytes Absolute Eosinophils Absolute Basophils VBG pH 7.32 VBG pCO2 69.3 H* VBG HCO3 34.9 H VBG Base Excess 5.7 Sodium Potassium Chloride Carbon Dioxide Anion Gap BUN Creatinine Est GFR ( Amer) Est GFR (Non-Af Amer) Glucose Calcium Magnesium 1.9 Total Bilirubin Direct Bilirubin AST ALT Alkaline Phosphatase Troponin I NT-Pro-B Natriuret Pep 7020 H Total Protein Albumin Urine Color Urine Appearance Urine pH Ur Specific [place] Urine Protein Urine Glucose (UA) Urine Ketones Urine Blood Urine Nitrite Urine Bilirubin Urine Urobilinogen Ur Leukocyte Esterase Urine WBC (Auto) Urine RBC (Auto) U Hyaline Cast (Auto) Urine Bacteria (Auto) Urine Mucus (Auto) Urine Ascorbic Acid Urine Opiates Screen Urine Methadone Screen Ur Barbiturates Screen Ur Phencyclidine Scrn Ur Amphetamines Screen U Benzodiazepines Scrn Urine Cocaine Screen U Marijuana (THC) Screen 12/12/17 12/13/17 12/13/17 23:27 01:55 01:55 WBC RBC Hgb Hct MCV MCH MCHC RDW Plt Count Seg Neutrophils % Lymphocytes % Monocytes % Eosinophils % Basophils % Absolute Neutrophils Absolute Lymphocytes Absolute Monocytes Absolute Eosinophils Absolute Basophils VBG pH VBG pCO2 VBG HCO3 VBG Base Excess Sodium Potassium Chloride Carbon Dioxide Anion Gap BUN Creatinine Est GFR ( Amer) Est GFR (Non-Af Amer) Glucose Calcium Magnesium Total Bilirubin Direct Bilirubin AST ALT Alkaline Phosphatase Troponin I 0.129 NT-Pro-B Natriuret Pep Total Protein Albumin Urine Color DARK YELLOW Urine Appearance SLIGHTLY-CLOUDY Urine pH 5.0 Ur Specific [place] 1.025 Urine Protein 30 H Urine Glucose (UA) NEGATIVE Urine Ketones NEGATIVE Urine Blood NEGATIVE Urine Nitrite NEGATIVE Urine Bilirubin NEGATIVE Urine Urobilinogen 4.0 H Ur Leukocyte Esterase NEGATIVE Urine WBC (Auto) 1 Urine RBC (Auto) 1 U Hyaline Cast (Auto) 7 Urine Bacteria (Auto) TRACE Urine Mucus (Auto) MOD Urine Ascorbic Acid NEGATIVE Urine Opiates Screen Pending Urine Methadone Screen Pending Ur Barbiturates Screen Pending Ur Phencyclidine Scrn Pending Ur Amphetamines Screen Pending U Benzodiazepines Scrn Pending Urine Cocaine Screen Pending U Marijuana (THC) Screen Pending Impressions: Chest X-Ray 12/12/17 20:19 IMPRESSION: Right basilar and left mid lung patchy airspace opacities. 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 Assessment & Plan - Diagnosis (1) Bilateral pneumonia Qualifiers: Pneumonia type: due to unspecified organism Lung location: unspecified part of lung Qualified Code(s): J18.9 - Pneumonia, unspecified organism Is this a current diagnosis for this admission?: Yes Plan: Continue with BiPAP for hypoxemia with O2 sat 86% on room air. IV Rocephin and IV doxycycline. Sputum culture. Solu-Medrol 60 mg every 8 hours. Please follow blood cultures. RT consult. Nebulizer treatment with DuoNeb every 3 hours as needed. ABG in the morning. VBG 7/ (2) Nonsustained ventricular tachycardia Is this a current diagnosis for this admission?: Yes Plan: After amiodarone is started, no further episodes of V. tach. Cardiology has been consulted. Troponins trending up, likely secondary to the same V. tach, will complete cardiac markers 3. Continue telemetry monitoring in the ICU. (3) COPD (chronic obstructive pulmonary disease) Qualifiers: Emphysema type: unspecified Is this a current diagnosis for this admission?: Yes Plan: As per prior assessment. Continue bronchodilators. (4) Paroxysmal atrial fibrillation Is this a current diagnosis for this admission?: Yes Plan: Patient has transitioned to atrial fibrillation, currently rate controlled. Continue with Xarelto and metoprolol. (5) Coronary artery disease Qualifiers: Coronary Disease-Associated Artery/Lesion type: [place] artery [place] vs. transplanted heart: [place] heart Associated angina: without angina Qualified Code(s): I25.10 - Atherosclerotic heart disease of [place] coronary artery without angina pectoris Is this a current diagnosis for this admission?: Yes Plan: Continue aspirin, beta-regine and Lipitor. Chest pain-free. (6) Hypertension Is this a current diagnosis for this admission?: Yes Plan: Continue home antihypertensive medications. - Time Time Spent: 30 to 50 Minutes - Inpatient Certification Based on my medical assessment, after consideration of the patient's comorbidities, presenting symptoms, or acuity I expect that the services needed warrant INPATIENT care.: Yes I certify that my determination is in accordance with my understanding of Medicare's requirements for reasonable and necessary INPATIENT services [42 CFR 412.3e].: Yes Medical Necessity: Need for IV Antibiotics, Risk of Complication if Not Cared For in Hospital
[2017-12-13] MEDS ORDERED: CEFTRIAXONE 1 GM/D5W RTU 1 GM/50 ML RTUPB IV SCH (03:00)
[2017-12-13] MEDS ORDERED: POTASSIUM CHLORIDE 20 MEQ/15 ML UDCUP PO ONE ×2 (03:00→09:00)
[2017-12-13] MEDS ORDERED: DOXYCYCLINE HYCLATE INJ 100 MG VIAL IV SCH (06:00)
[2017-12-13 06:10] LABS: ABSOLUTE EOSINOPHILS # (AUTO) 0.1 10^3/uL (0.0-0.6); ABSOLUTE LYMPHOCYTES (AUTO) 0.5 10^3/uL (0.5-4.7); ABSOLUTE MONOCYTES (AUTO) 0.7 10^3/uL (0.1-1.4); ABSOLUTE NEUT (AUTO) 6.4 10^3/uL (1.7-8.2); BASOPHILS % (AUTO) 0.4 % (0-2); EOSINOPHILS % (AUTO) 1.8 % (0-6); HEMATOCRIT 46.5 % (37.9-51.0); HEMOGLOBIN 15.6 g/dL (13.5-17.0); MEAN CORPUSCULAR HGB CONC 33.5 g/dL (32.0-36.0); MEAN CORPUSCULAR VOLUME 96 fl (80-97); MONOCYTES % (AUTO) 8.8 % (3-13); PLATELET COUNT 163 10^3/uL (150-450); RED BLOOD COUNT 4.86 10^6/uL (4.35-5.55); RED CELL DISTRIBUTION WIDTH 14.8 % (11.5-14.0); TOTAL CELLS COUNTED % (AUTO) 100 %; WHITE BLOOD COUNT 7.7 10^3/uL (4.0-10.5)
[2017-12-13] MEDS ORDERED: CEFTRIAXONE INJ 500 MG VIAL ONE (06:17)
[2017-12-13] MEDS ORDERED: DOXYCYCLINE HYCLATE INJ 100 MG VIAL ONE (06:18)
[2017-12-13 06:29] LABS: ANION GAP 5 (5-19); BLOOD UREA NITROGEN 20 mg/dL (7-20); CALCIUM 8.7 mg/dL (8.4-10.2); CARBON DIOXIDE 32 mmol/L (22-30); CHLORIDE 102 mmol/L (98-107); GLUCOSE 111 mg/dL (75-110); POTASSIUM 3.8 mmol/L (3.6-5.0); SODIUM 139.2 mmol/L (137-145)
[2017-12-13] MEDS: METHYLPREDNISOLONE INJ 125 MG/2 ML SDV IV SCH ×3 (06:56→22:25)
[2017-12-13] MEDS: NORMAL SALINE 1000 ML 1,000 ML IV PRN (08:59)
[2017-12-13] MEDS: ENOXAPARIN SODIUM INJ 40 MG/0.4 ML DISP.SYRIN SUBCUT SCH (09:37)
--- NOTE | 2017-12-13 10:23 | EKG REPORT ---
SEVERITY:- ABNORMAL ECG - ATRIAL FIBRILLATION, V-RATE 60-104 VENTRICULAR PREMATURE COMPLEX RIGHT BUNDLE BRANCH BLOCK : Confirmed by: Vivian Laura MD 13-Dec-2017 10:21:58
--- NOTE | 2017-12-13 10:23 | EKG REPORT ---
SEVERITY:- ABNORMAL ECG - ATRIAL FIBRILLATION, V-RATE 50-85 RIGHT BUNDLE BRANCH BLOCK : Confirmed by: Vivian Laura MD 13-Dec-2017 10:21:51
[2017-12-13] MEDS ORDERED: DEXTROSE 5%-WATER 500 ML with AMIODARONE HCL 900 MG IV PRN ×2 (11:46)
--- NOTE | 2017-12-13 14:35 | Progress Note ---
Provider Note Provider Note: Patient admitted overnight with atrial fibrillation as well as bilateral pneumonia and acute respiratory failure. He was also found to have a nonsustained ventricular tachycardia in addition to other elements. Patient is feeling better. He has been off BiPAP this morning although he will be placed back on it as indicated. He has been seen by Dr. Lomas. Patient is currently on amiodarone drip, Xarelto. He is also on ceftriaxone as well as doxycycline IV. Cultures currently pending. His electrolytes acceptable. Troponin was elevated yesterday likely secondary to his supra ventricular and nonsustained ventricular tachycardia but this has since trended down. We will continue to monitor patient's and make further adjustments as medically indicated.
[2017-12-13] MEDS: DOXYCYCLINE HYCLATE 100 MG in DEXTROSE 5%-WATER 250 ML IV SCH (17:08)
--- NOTE | 2017-12-13 19:18 | XCELERA REPORT ---
[address] [address] Transthoracic Echocardiogram Report Name: ANSELMO CABEZAS Age: 67 yrs Gender: Male : 1950 Patient Status: Inpatient Patient Location: [address] [place], [place] [address] Study Date: 12/13/2017 01:00 PM Height: 71 in Weight: 211 lb BSA: 2.2 m2 Procedure: A complete two-dimensional transthoracic echocardiogram was performed (2D, M-mode, spectral and color flow Doppler). The study was technically difficult with many images being suboptimal in quality. Reason For Study: A FIB, [facility] Ordering Physician: ALDO MARQUEZ Performed By: Wilfredo Toure Interpretation Summary The study was technically difficult with many images being suboptimal in quality. Left ventricular systolic function is moderately reduced. Consider additional methods to assess LVEF such as MUGA scan, CTA heart, cardiac MRI, KEITH, etc. if clinically indicated. The left ventricle is mildly dilated. The left ventricle is grossly normal size. Regional wall motion abnormalities cannot be excluded due to limited visualization. LV diastolic function could not be adequately assessed due to atrial fibrilation. The right ventricle is grossly normal size. Right ventricular function cannot be assessed due to poor image quality. The left atrium is severely dilated. The right atrium is moderately dilated. There is a moderate amount of mitral regurgitation There is no mitral valve stenosis. No aortic regurgitation is present. There is no aortic valve stenosis There is a trace or physiologic amount of tricuspid regurgitation Tricuspid regurgitation jet envelope not well defined to measure RV systolic pressure accurately. The aortic root is not well visualized but is probably normal size. The inferior vena cava appeared normal and decreased > 50% with respiration (RAP 5-10 mmHg) There is no pericardial effusion. MMode/2D Measurements & Calculations RVDd: 3.6 cm LVIDd: 7.4 cm FS: 22.6 % Ao root diam: 2.2 cm IVSd: 1.4 cm LVIDs: 5.8 cm EDV(Teich): 293.2 ml Ao root area: 3.8 cm2 LVPWd: 1.4 cm ESV(Teich): 163.8 ml LA dimension: 7.7 cm EF(Teich): 44.1 % LVOT diam: 2.1 cm LVOT area: 3.5 cm2 Doppler Measurements & Calculations MV E max carl: MV P1/2t max carl: Ao V2 max: LV V1 max P.2 cm/sec 97.7 cm/sec 99.4 cm/sec 2.2 mmHg MV A max cral: MV P1/2t: 92.4 msec Ao max P.6 mmHgLV V1 max: 44.4 cm/sec MVA(P1/2t): 2.4 cm2 JENNIFER(V,D): 2.6 cm2 73.5 cm/sec MV E/A: 2.3 MV dec slope: 310.0 cm/sec2 MV dec time: 0.15 sec TV V2 max: PA V2 max: MV P1/2t-pr_phl: 253.8 cm/sec 70.6 cm/sec 92.4 msec TV max PG: PA max P.0 mmHg 25.8 mmHg Left Ventricle The left ventricle is grossly normal size. The left ventricle is mildly dilated. Left ventricular systolic function is moderately reduced. Consider additional methods to assess LVEF such as MUGA scan, CTA heart, cardiac MRI, KEITH, etc. if clinically indicated. LV diastolic function could not be adequately assessed due to atrial fibrilation. Regional wall motion abnormalities cannot be excluded due to limited visualization. Right Ventricle The right ventricle is grossly normal size. Right ventricular function cannot be assessed due to poor image quality. Atria The right atrium is moderately dilated. The left atrium is severely dilated. Interarterial septum not well visualized and not well dopplered. Cannot comment on ASD/PFO presence. Mitral Valve The mitral valve leaflets are sclerotic, but show no functional abnormalities. There is no mitral valve stenosis. There is a moderate amount of mitral regurgitation. Aortic Valve The aortic valve is moderately calcified. There is no aortic valve stenosis. No aortic regurgitation is present. Tricuspid Valve The tricuspid valve is not well visualized secondary to technical limitations. There is no tricuspid stenosis. There is a trace or physiologic amount of tricuspid regurgitation. Tricuspid regurgitation jet envelope not well defined to measure RV systolic pressure accurately. Pulmonic Valve The pulmonic valve is not well visualized. Great Vessels The aortic root is not well visualized but is probably normal size. The inferior vena cava appeared normal and decreased > 50% with respiration (RAP 5-10 mmHg). Effusions There is no pericardial effusion. : ALDO MARQUEZ > Aldo Marquez
--- NOTE | 2017-12-13 19:51 | PDOC CONSULTATION ---
Consultation Consult Date: 12/13/17 Attending physician:: JENNIFER VALDEZ Consult reason:: Nonsustained ventricular tachycardia History of Present Illness Admission Date/PCP: 12/13/17 00:16 JACOB AVALOS PA-C Patient complains of: Shortness of breath History of Present Illness: ANSELMO CABEZAS is a 67 year old male who comes to the emergency department who presents with cough and "increased weakness per my neighbor". The patient reports that he has had a cough for the past 2-3 days. He states that his neighbor was worried that he could be having a recurrent stroke as he seemed more weak than normal. Pulsoxymetrie shows patient to be saturating 86% on room air and does not normally have an oxygen requirement, was initiated on BiPAP. The patient reports that he has been taking all medications as directed. He denies any increased weakness from his baseline. He denies a fever at home. No nausea, vomiting, headache, neck pain or altered mental status. Nothing improves or worsens his symptoms. He denies any associated chest pain. In the emergency department shows nonsustained ventricular tachycardia, Cordarone 150 mg IV push given in place on amiodarone infusion. 1 L IV fluids. IV Levaquin. First set of troponin 0 0.106. 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 EKG varies from the first one with sinus rhythm at 85 beats per minutes with RBBB to atrial fibrillation 60-104. This history obtained by the hospitalist was reviewed and confirmed. I was called by the ER physician last night, mentioning that patient was having frequent runs of nonsustained ventricular tachycardia. As per discussion, patient was started on amiodarone bolus and drip protocol. This morning, he was noted to be free of any nonsustained ventricular tachycardia. Initially he was placed on bilevel therapy and now he is on nasal cannula and having comfortable breathing. Patient's troponin I was noted to be abnormal. Patient also suspected to have pneumonia. Patient had hypoxemia. Past Medical History Cardiac Medical History: Reports: Myocardial Infarction - possible, Hyperlipidema, Hypertension Denies: Coronary Artery Disease Pulmonary Medical History: Reports: Asthma Denies: Bronchitis, Chronic Obstructive Pulmonary Disease (COPD), Pneumonia, Tuberculosis Neurological Medical History: Denies: Seizures Musculoskeltal Medical History: Denies: Arthritis Psychiatric Medical History: Reports: Depression Hematology: Denies: Anemia Past Surgical History Past Surgical History: Reports: Vascular Surgery - Left lower extremity stent Denies: Pacemaker Social History Information Source: Patient Lives with: Alone Smoking Status: Former Smoker Frequency of Alcohol Use: None Hx Recreational Drug Use: No Drugs: None Hx Prescription Drug Abuse: No - Advance Directive Resuscitation Status: Full Code Surrogate healthcare decision maker:: Patient friend is the surrogate decision-maker Family History Family History: Hypertension Parental Family History Reviewed: Yes Children Family History Reviewed: Yes Sibling(s) Family History Reviewed.: Yes Medication/Allergy Home Medications: Albuterol Sulfate [Ventolin Hfa] 2 puff IH Q6HP PRN 12/13/17 Fluticasone/Salmeterol [Advair HFA 115-21 mcg Inhaler] 2 puff IH BID 12/13/17 Fluticasone/Salmeterol [Advair HFA 230-21 mcg Inhaler] 2 puff IH BID 12/13/17 Rivaroxaban [Xarelto] 20 mg PO QPM 12/13/17 Allergies/Adverse Reactions: No Known Allergies Allergy (Verified 05/17/16 13:30) Review of Systems Review of Systems: Please see history of present illness and past medical history as wall. Constitutional: No fever or chills reported. Head : No recent chronic headaches, recent head injury. Eyes: No recent eye pain, diplopia, redness, discharge, acute visual changes. Ears: No recent chronic ear pain, acute hearing loss, ear discharge. Oral cavity: No recent ulcerations, bleeding, oral cavity discomfort. Neck: No recent acute neck pain reported. Hematologic: No recent easy bruising or bleeding. Lymphatic: No recent lymph node enlargement reported. Cardiovascular system review: See history of present illness. Respiratory system review: No hemoptysis or blood clots in the lungs reported. Recent cough noted. Patient carries a diagnosis of COPD, frequent wheezing. Gastrointestinal system review: Negative for any recent acute hematemesis, melena. Genitourinary system review: No recent acute or chronic hematuria, flank pain, UTI etc. reported. Skin system review: Negative for any recent abnormal bruising, no rash, no pruritus reported. Neurologic: No prior history of strokes, mini strokes, seizure disorder. Psychologic: No history of major psychosis or major depression reported. Musculoskeletal: Minor aches and pains reported. No acute joint swelling reported. Endocrine: No recent polyuria, polydipsia, recent heat or cold intolerance. Physical Exam Vital Signs: Temp Pulse Resp BP Pulse Ox 98.8 F 93 23 H 112/71 97 12/13/17 15:26 12/13/17 19:00 12/13/17 16:25 12/13/17 19:00 12/13/17 16:25 Intake & Output 12/12/17 12/13/17 12/14/17 06:59 06:59 06:59 Intake Total 318 835 Output Total 250 Balance 318 585 Weight 96 kg Exam: GENERAL: well-nourished and in no acute distress. Alert and oriented x3 HEAD: Atraumatic, normocephalic. EYES: Pupils equal round and reactive to light, extraocular movements intact, sclera anicteric, conjunctiva are normal. ENT: TMs normal, nares patent, oropharynx clear without exudates. Moist mucous membranes. No oral ulcerations or bleeding gums noted NECK: supple without lymphadenopathy. Trachea is central. No cervical or axillary lymphadenopathy noted. Carotids are 2+, JVD 10-12 cm LUNGS: Respiration seems nonlabored, no significant accessory muscle action noted. Bibasilar fine crackles as well as bilateral diffuse wheezing noted. CHEST: Palpation of the chest wall shows no significant chest wall tenderness. 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 ABDOMEN: Soft, no significant tenderness appreciated, normoactive bowel sounds. No guarding, no rebound. No rigidity noted . No masses appreciated. EXTREMITIES: Pedal pulses are 1-2+, no calf tenderness noted. No clubbing or cyanosis. 1+ pedal edema noted NEUROLOGICAL: Focused neurological exam showed no significant neurologic deficit. Normal speech, no focal weakness appreciated. PSYCH: Normal mood, normal affect. Judgment and insight within normal limits. SKIN: No significant ecchymosis, skin is noted to be warm. MUSCULOSKELETAL EXAM: No significant acute joint swelling noted. Results Laboratory Results: 12/13/17 05:40 12/13/17 05:46 12/13/17 12/13/17 12/13/17 01:55 05:40 05:46 WBC 7.7 RBC 4.86 Hgb 15.6 Hct 46.5 MCV 96 MCH 32.0 MCHC 33.5 RDW 14.8 H Plt Count 163 Seg Neutrophils % 83.0 H Lymphocytes % 6.0 L Monocytes % 8.8 Eosinophils % 1.8 Basophils % 0.4 Absolute Neutrophils 6.4 Absolute Lymphocytes 0.5 Absolute Monocytes 0.7 Absolute Eosinophils 0.1 Absolute Basophils 0.0 Sodium 139.2 Potassium 3.8 Chloride 102 Carbon Dioxide 32 H Anion Gap 5 BUN 20 Creatinine 0.67 Est GFR ( Amer) > 60 Est GFR (Non-Af Amer) > 60 Glucose 111 H Calcium 8.7 Urine Color DARK YELLOW Urine Appearance SLIGHTLY-CLOUDY Urine pH 5.0 Ur Specific [place] 1.025 Urine Protein 30 H Urine Glucose (UA) NEGATIVE Urine Ketones NEGATIVE Urine Blood NEGATIVE Urine Nitrite NEGATIVE Ur Leukocyte Esterase NEGATIVE Urine WBC (Auto) 1 Urine RBC (Auto) 1 12/13/17 12/13/17 12/13/17 05:46 05:46 11:20 Troponin I 0.103 Cancelled 0.086 EKG Comments: Atrial fibrillation, right bundle branch block pattern, occasional VPCs, no acute ST-T wave changes are noted Impressions: Chest X-Ray 12/12/17 20:19 IMPRESSION: Right basilar and left mid lung patchy airspace opacities. 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 Assessment & Plan - Diagnosis (1) Atrial fibrillation Qualifiers: Atrial fibrillation type: persistent Qualified Code(s): I48.1 - Persistent atrial fibrillation Is this a current diagnosis for this admission?: Yes (2) Nonsustained ventricular tachycardia Is this a current diagnosis for this admission?: Yes (3) CHF (congestive heart failure) Is this a current diagnosis for this admission?: Yes (4) COPD (chronic obstructive pulmonary disease) Qualifiers: Emphysema type: unspecified Is this a current diagnosis for this admission?: Yes (5) Coronary artery disease Qualifiers: Coronary Disease-Associated Artery/Lesion type: [place] artery [place] vs. transplanted heart: [place] heart Associated angina: without angina Qualified Code(s): I25.10 - Atherosclerotic heart disease of [place] coronary artery without angina pectoris Is this a current diagnosis for this admission?: Yes (6) Hypertension Qualifiers: Hypertension type: essential hypertension Qualified Code(s): I10 - Essential (primary) hypertension Is this a current diagnosis for this admission?: Yes (7) Troponin level elevated Is this a current diagnosis for this admission?: Yes (8) Pneumonia Qualifiers: Pneumonia type: due to unspecified organism Laterality: unspecified laterality Lung location: unspecified part of lung Qualified Code(s): J18.9 - Pneumonia, unspecified organism Is this a current diagnosis for this admission?: Yes - Notes Notes: Atrial fibrillation: Patient was admitted with atrial fibrillation with RVR. Currently rate is well controlled. Continue amiodarone drip, when protocol is over, recommend amiodarone at 400 mg p.o. twice daily. For rate control with recommend beta-regine,beta 1 selective and digoxin. Continue Xarelto for chronic anticoagulation. Nonsustained ventricular tachycardia: On repeated questioning patient denied any syncope or near syncope. At this point will recommend continued monitoring. Possibly ischemic, possibly related to underlying cardiomyopathy. A 2D echocardiogram has been ordered. CHF: Patient on chest x-ray reviews is felt to have right-sided pleural effusion. Cannot rule out atelectasis. Will consider a CT chest for further evaluation. CAD: Patient describes prior history of coronary artery disease and myocardial infarction. Troponin I is elevated. Will consider stress test but patient currently too sick to undergo this. Hypertension: Blood pressure goal is 135/85, ELISA inhibitor/ARB/entresto preferred. Troponin I elevated: Currently recommending medical management as patient without chest pain. Troponin I elevation could be related to CHF, cardiac dysrhythmia etc. once stabilized may consider a stress test. Bilateral pneumonia: This is being suspected. Continue antibiotic therapy - Time Time Spent: 50 to 70 Minutes - CODE STATUS was discussed, patient remains full code. Surrogate decision-maker unchanged. Multiple medical problems were addressed. More than 50% of the time spent coordinating care, discussing management plans with involved caregivers. Management plans discussed with involved personnels. Medical decision making was of moderate to high complexity , patient's has multiple comorbidities. Medications reviewed and adjusted accordingly: Yes
[2017-12-13] MEDS: METOPROLOL SUCCINATE 25 MG TAB.SR.24H PO SCH (22:25)
[2017-12-14] MEDS: ATORVASTATIN CALCIUM 40 MG TABLET PO SCH ×2 (00:08→22:31)
[2017-12-14] MEDS: IPRATROPIUM/ALBUTEROL 0.5-2.5 MG/3 ML AMPUL NEB SCH ×4 (02:41→19:41)
[2017-12-14] MEDS ORDERED: CEFTRIAXONE 1 GM/D5W RTU 1 GM/50 ML RTUPB IV SCH (06:00)
[2017-12-14] MEDS: CEFTRIAXONE SODIUM 1,000 MG in NORMAL SALINE 50 ML IV SCH (06:06)
[2017-12-14] MEDS: METHYLPREDNISOLONE INJ 125 MG/2 ML SDV IV SCH ×3 (06:07→22:30)
[2017-12-14] MEDS: DOXYCYCLINE HYCLATE 100 MG in DEXTROSE 5%-WATER 250 ML IV SCH ×2 (06:32→17:04)
[2017-12-14 07:43] LABS: ARTERIAL BLOOD BASE EXCESS 2.8 mmol/L; ARTERIAL BLOOD H2CO3 1.55 mmol/L (1.05-1.35); ARTERIAL BLOOD HCO3 29.2 mmol/L (20-24); ARTERIAL BLOOD O2 SATURATION 79.6 % (94-98); ARTERIAL BLOOD PCO2 51.5 mmHg (35-45); ARTERIAL BLOOD PH 7.37 (7.35-7.45); ARTERIAL BLOOD PO2 45.4 mmHg (80-100); ARTERIAL BLOOD TOTAL CO2 30.8 mmol/L (23-27)
[2017-12-14 07:44] LABS: ARTERIAL BLOOD FIO2 40%
[2017-12-14] MEDS: METOPROLOL SUCCINATE 25 MG TAB.SR.24H PO SCH ×2 (09:44→22:31)
[2017-12-14] MEDS: ENOXAPARIN SODIUM INJ 40 MG/0.4 ML DISP.SYRIN SUBCUT SCH (09:45)
[2017-12-14] MEDS ORDERED: AMIODARONE HCL 200 MG TABLET PO SCH (10:00)
--- NOTE | 2017-12-14 11:25 | PDOC PROGRESS REPORT ---
Subjective Progress Note for:: 12/14/17 Subjective:: Patient seems to be doing better with gradual improvement. Pt is denying any chest arm or neck discomfort. Patient denying any PND, orthopnea. Patient denied any sustained palpitations, dizziness, syncope, near syncope. Patient denying any fever chills. Patient denying any other significant discomfort. Patient is maintaining atrial fibrillation with controlled ventricular response , overnight he was noted to have slow heartbeat. Review of systems: Rest review of systems negative. Medications: Medications have been reviewed. Reason For Visit: BILATERAL PNA,NONSUSTAINED VTACH Physical Exam Vital Signs: Temp Pulse Resp BP Pulse Ox 98.8 F 64 38 H 118/57 L 97 12/14/17 07:27 12/14/17 07:27 12/14/17 07:27 12/14/17 07:27 12/14/17 07:27 Intake & Output 12/13/17 12/14/17 12/15/17 06:59 06:59 06:59 Intake Total 318 1185 Output Total 530 Balance 318 655 Weight 96 kg 99.1 kg Exam: GENERAL: well-nourished and in no acute distress. Alert and oriented x3 HEAD: Atraumatic, normocephalic. EYES: Pupils equal round and reactive to light, extraocular movements intact, sclera anicteric, conjunctiva are normal. ENT: TMs normal, nares patent, oropharynx clear without exudates. Moist mucous membranes. No oral ulcerations or bleeding gums noted NECK: supple without lymphadenopathy. Trachea is central. No cervical or axillary lymphadenopathy noted. Carotids are 2+, JVD WNL LUNGS: Respiration seems nonlabored, no significant accessory muscle action noted. Bibasilar fine crackles and scattered wheezes rales or rhonchi noted. No significant dullness noted on percussion. CHEST: Palpation of the chest wall shows no significant chest wall tenderness. 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 ABDOMEN: Soft, no significant tenderness appreciated, normoactive bowel sounds. No guarding, no rebound. No rigidity noted . No masses appreciated. EXTREMITIES: Pedal pulses are 1-2+, no calf tenderness noted. No clubbing or cyanosis. negative pedal edema noted NEUROLOGICAL: Focused neurological exam showed no significant neurologic deficit. Normal speech, no focal weakness appreciated. PSYCH: Normal mood, normal affect. Judgment and insight within normal limits. SKIN: No significant ecchymosis, skin is noted to be warm. MUSCULOSKELETAL EXAM: No significant acute joint swelling noted. Results Laboratory Results: 12/13/17 05:40 12/13/17 05:46 12/14/17 07:00 Carbonic Acid 1.55 H HCO3/H2CO3 Ratio 18:1 ABG pH 7.37 ABG pCO2 51.5 H ABG pO2 45.4 L ABG HCO3 29.2 H ABG O2 Saturation 79.6 L ABG Base Excess 2.8 FiO2 40% 12/13/17 12/13/17 12/13/17 05:46 05:46 11:20 Troponin I 0.103 Cancelled 0.086 EKG Comments: Telemetry strip shows atrial fibrillation with controlled ventricular response. Impressions: Chest X-Ray 12/12/17 20:19 IMPRESSION: Right basilar and left mid lung patchy airspace opacities. 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 Assessment & Plan - Diagnosis (1) Atrial fibrillation Qualifiers: Atrial fibrillation type: persistent Qualified Code(s): I48.1 - Persistent atrial fibrillation Is this a current diagnosis for this admission?: Yes (2) Nonsustained ventricular tachycardia Is this a current diagnosis for this admission?: Yes (3) CHF (congestive heart failure) Is this a current diagnosis for this admission?: Yes (4) COPD (chronic obstructive pulmonary disease) Qualifiers: Emphysema type: unspecified Is this a current diagnosis for this admission?: Yes (5) Coronary artery disease Qualifiers: Coronary Disease-Associated Artery/Lesion type: [place] artery [place] vs. transplanted heart: [place] heart Associated angina: without angina Qualified Code(s): I25.10 - Atherosclerotic heart disease of [place] coronary artery without angina pectoris Is this a current diagnosis for this admission?: Yes (6) Hypertension Qualifiers: Hypertension type: essential hypertension Qualified Code(s): I10 - Essential (primary) hypertension Is this a current diagnosis for this admission?: Yes (7) Troponin level elevated Is this a current diagnosis for this admission?: Yes (8) Pneumonia Qualifiers: Pneumonia type: due to unspecified organism Laterality: unspecified laterality Lung location: unspecified part of lung Qualified Code(s): J18.9 - Pneumonia, unspecified organism Is this a current diagnosis for this admission?: Yes - Notes Notes: Atrial fibrillation: Patient was admitted with atrial fibrillation with RVR. Currently rate is well controlled. Amiodarone drip stopped overnight because of bradycardia. P.o. amiodarone also being stopped because of COPD and bradycardia. For rate control with recommend beta-regine,beta 1 selective and digoxin. Continue Xarelto for chronic anticoagulation. Nonsustained ventricular tachycardia: On repeated questioning patient denied any syncope or near syncope. At this point will recommend continued monitoring. Possibly ischemic, possibly related to underlying cardiomyopathy. A 2D echocardiogram shows depressed LVEF. Will recommend optimizing therapy. CHF: Patient on chest x-ray reviews is felt to have right-sided pleural effusion. Cannot rule out atelectasis. Will consider a CT chest for further evaluation. CAD: Patient describes prior history of coronary artery disease and myocardial infarction. Troponin I is elevated. Will consider stress test but patient currently too sick to undergo this. Hypertension: Blood pressure goal is 135/85, ELISA inhibitor/ARB/entresto preferred. Troponin I elevated: Currently recommending medical management as patient without chest pain. Troponin I elevation could be related to CHF, cardiac dysrhythmia etc. once stabilized may consider a stress test. Bilateral pneumonia: This is being suspected. Continue antibiotic therapy - Time Time with patient: Greater than 35 minutes - More than 50% of the time spent coordinating care, discussing management plans with involved caregivers. Management plans discussed with involved personnels. Medical decision making was of moderate to high complexity, patient's has multiple comorbidities. Medications reviewed and adjusted accordingly: Yes
[2017-12-14] MEDS: NORMAL SALINE 1000 ML 1,000 ML IV PRN (11:29)
--- NOTE | 2017-12-14 13:29 | RADIOLOGY REPORT (SQ) ---
EXAM DESCRIPTION: CT CHEST WITHOUT COMPLETED DATE/TIME: 12/14/2017 12:37 pm REASON FOR STUDY: Pneumonia, CHF, pleural effusion, evaluate abn CXR COMPARISON: Chest x-ray dated 12/12/2017. Chest CT dated 06/30/2014. TECHNIQUE: CT scan performed of the chest without intravenous contrast. Images reviewed with lung, soft tissue and bone windows. Reconstructed coronal and sagittal MPR images reviewed. All images st ored on PACS. All CT scanners at this facility use dose modulation, iterative reconstruction, and/or weight based d osing when appropriate to reduce radiation dose to as low as reasonably achievable (ALARA). [facility]: Dose Right [facility]: CareDose [facility]: Dose Right [facility]: Teradose 4D [facility]: [employer] RADIATION DOSE: CT Rad equipment meets quality standard of care and radiation dose reduction techniq ues were employed. CTDIvol: 20.2 mGy. DLP: 896 mGy-cm. mGy. LIMITATIONS: No technical limitations. FINDINGS: LUNGS AND PLEURA: Emphysematous changes. 4 cm irregular mass in the left mid lung. Numer ous small, subcentimeter, pulmonary nodules scattered throughout both lungs. Patchy airspace disease in the lung bases. Bilateral pleural effusions. HILAR AND MEDIASTINAL STRUCTURES: No identified masses or abnormal nodes. No obvious aneurysm. HEART AND VASCULAR STRUCTURES: No aneurysm. Cardiomegaly. Small pericardial effusion. UPPER ABDOMEN: No significant findings. Limited exam. THYROID AND OTHER SOFT TISSUES: No masses. No adenopathy. BONES: No significant finding. HARDWARE: None in the chest. OTHER: No other significant findings. IMPRESSION: 1. 4 CM IRREGULAR MASS IN THE LEFT MID LUNG HIGHLY SUSPICIOUS FOR MALIGNANCY. THERE ARE NUMEROUS PUL MONARY NODULES THROUGHOUT BOTH LUNGS CONCERNING FOR METASTASES. 2. ATELECTASIS/INFILTRATE IN THE LUNG BASES WITH BILATERAL PLEURAL EFFUSIONS. 3. CARDIOMEGALY WITH SMALL PERICARDIAL EFFUSION. TECHNICAL DOCUMENTATION: JOB ID: [id number] Quality ID # [id number]: Final reports with documentation of one or more dose reduction techniques (e.g., Au tomated exposure control, adjustment of the mA and/or kV according to patient size, use of iterative reconstruction technique) 2010 [employer]- All Rights Reserved Reading location - IP/workstation name: [email or web address]
--- NOTE | 2017-12-14 14:24 | PDOC PROGRESS REPORT ---
Subjective Progress Note for:: 12/14/17 Subjective:: Breathing improved but still tentative. Off amiodarone drip due to bradycardia Cont BIPAP, Increase FIO2 Reason For Visit: BILATERAL PNA,NONSUSTAINED VTACH Physical Exam Vital Signs: Temp Pulse Resp BP Pulse Ox 98.8 F 57 L 32 H 99/53 L 93 12/14/17 07:27 12/14/17 14:00 12/14/17 12:15 12/14/17 12:15 12/14/17 12:15 Intake & Output 12/13/17 12/14/17 12/15/17 06:59 06:59 06:59 Intake Total 318 2185 592 Output Total 530 75 Balance 318 1655 517 Weight 96 kg 99.1 kg General appearance: PRESENT: no acute distress, well-developed, well-nourished Head exam: PRESENT: atraumatic, normocephalic Eye exam: PRESENT: conjunctiva pink, EOMI, PERRLA. ABSENT: scleral icterus Ear exam: PRESENT: normal external ear exam Mouth exam: PRESENT: moist, tongue midline Neck exam: ABSENT: carotid bruit, JVD, lymphadenopathy, thyromegaly Respiratory exam: PRESENT: crackles, decreased breath sounds, rhonchi - bilateral, tachypnea. ABSENT: rales, wheezes Cardiovascular exam: PRESENT: irregular rhythm, +S1, +S2. ABSENT: diastolic murmur, rubs, systolic murmur Pulses: PRESENT: normal dorsalis pedis pul Vascular exam: PRESENT: normal capillary refill GI/Abdominal exam: PRESENT: normal bowel sounds, soft. ABSENT: distended, guarding, mass, organolmegaly, rebound, tenderness Rectal exam: PRESENT: deferred Extremities exam: PRESENT: full ROM. ABSENT: calf tenderness, clubbing, pedal edema Neurological exam: PRESENT: alert, awake, oriented to person, oriented to place , oriented to time, oriented to situation, CN II-XII grossly intact. ABSENT: motor sensory deficit Psychiatric exam: PRESENT: appropriate affect, normal mood. ABSENT: homicidal ideation, suicidal ideation Skin exam: PRESENT: dry, intact, warm. ABSENT: cyanosis, rash Results Laboratory Results: 12/13/17 05:40 12/13/17 05:46 12/14/17 07:00 Carbonic Acid 1.55 H HCO3/H2CO3 Ratio 18:1 ABG pH 7.37 ABG pCO2 51.5 H ABG pO2 45.4 L ABG HCO3 29.2 H ABG O2 Saturation 79.6 L ABG Base Excess 2.8 FiO2 40% 12/13/17 12/13/17 12/13/17 05:46 05:46 11:20 Troponin I 0.103 Cancelled 0.086 Impressions: Chest X-Ray 12/12/17 20:19 IMPRESSION: Right basilar and left mid lung patchy airspace opacities. 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 Chest CT 12/14/17 00:00 IMPRESSION: 1. 4 CM IRREGULAR MASS IN THE LEFT MID LUNG HIGHLY SUSPICIOUS FOR MALIGNANCY. THERE ARE NUMEROUS PULMONARY NODULES THROUGHOUT BOTH LUNGS CONCERNING FOR METASTASES. 2. ATELECTASIS/INFILTRATE IN THE LUNG BASES WITH BILATERAL PLEURAL EFFUSIONS. 3. CARDIOMEGALY WITH SMALL PERICARDIAL EFFUSION. Assessment & Plan - Diagnosis (1) Atrial fibrillation Qualifiers: Atrial fibrillation type: persistent Qualified Code(s): I48.1 - Persistent atrial fibrillation Is this a current diagnosis for this admission?: Yes (2) Bilateral pneumonia Qualifiers: Pneumonia type: due to unspecified organism Lung location: unspecified part of lung Qualified Code(s): J18.9 - Pneumonia, unspecified organism Is this a current diagnosis for this admission?: Yes (3) Nonsustained ventricular tachycardia Is this a current diagnosis for this admission?: Yes (4) Troponin level elevated Is this a current diagnosis for this admission?: Yes (5) CHF (congestive heart failure) Is this a current diagnosis for this admission?: Yes (6) COPD (chronic obstructive pulmonary disease) Qualifiers: Emphysema type: unspecified Is this a current diagnosis for this admission?: Yes (7) Tobacco abuse Is this a current diagnosis for this admission?: Yes - Time Time Spent with patient: 15-24 minutes Medications reviewed and adjusted accordingly: Yes Anticipated discharge: Home Within: within 72 hours - Inpatient Certification Based on my medical assessment, after consideration of the patient's comorbidities, presenting symptoms, or acuity I expect that the services needed warrant INPATIENT care.: Yes Medical Necessity: Need Close Monitoring Due to Risk of Patient Decompensation, Need For Continuous Telemetry Monitoring, Need for Nebulizer Therapy and Monitoring of Response - Plan Summary Plan Summary: CT scan of the chest done reveals 4 cm irregular mass in the left midlung highly suspicious for malignancy with numerous pulmonary nodules throughout both lungs concerning for metastases. CT scan of the brain was done on admission which showed no evidence of metastasis. He will need CT of the abdomen and pelvis for further evaluation and an oncology consult once stable Patient will need biopsy to be done but is currently in atrial fibrillation with anticoagulation. Once this is controlled he should be scheduled for a biopsy. IV amiodarone was stopped overnight due to bradycardia. Patient is been continued on beta-regine as well as digoxin and Xarelto. P.o. amiodarone will also be discontinued. Possible pneumonia, postobstructive given the CT scan findings. We will continue with current antibiotic regiment and de-escalate as appropriate Coronary artery disease with prior history of myocardial infarction. Patient will need further valuation and management once stable. Acute hypoxemic respiratory failure likely multifactorial including underlying COPD, CHF, postobstructive pneumonia and possibly lung ca Troponin elevation likely related to CHF and cardiac dysrhythmia further workup as per cardiology once stable. .
[2017-12-14 17:04] LABS: ARTERIAL BLOOD BASE EXCESS -1.4 mmol/L; ARTERIAL BLOOD H2CO3 1.33 mmol/L (1.05-1.35); ARTERIAL BLOOD HCO3 24.3 mmol/L (20-24); ARTERIAL BLOOD O2 SATURATION 91.2 % (94-98); ARTERIAL BLOOD PCO2 44.2 mmHg (35-45); ARTERIAL BLOOD PH 7.36 (7.35-7.45); ARTERIAL BLOOD PO2 63.1 mmHg (80-100); ARTERIAL BLOOD TOTAL CO2 25.7 mmol/L (23-27)
[2017-12-14] MEDS: SACUBITRIL/VALSARTAN 24 MG/26 MG TABLET PO SCH (17:04)
[2017-12-14 17:06] LABS: ARTERIAL BLOOD FIO2 40%
[2017-12-14] MEDS ORDERED: VANCOMYCIN HCL INJ 1000 MG VIAL IV PRN (22:00)
[2017-12-14] MEDS ORDERED: VANCOMYCIN HCL 2,000 MG in DEXTROSE 5%-WATER 500 ML IV ONE (22:00)
[2017-12-14] MEDS ORDERED: VANCOMYCIN HCL INJ 1000 MG VIAL ONE (23:07)
[2017-12-15] MEDS: IPRATROPIUM/ALBUTEROL 0.5-2.5 MG/3 ML AMPUL NEB SCH ×4 (01:41→19:17)
[2017-12-15] MEDS: NORMAL SALINE 1000 ML 1,000 ML IV PRN ×2 (04:38→23:40)
[2017-12-15] MEDS: CEFTRIAXONE SODIUM 1,000 MG in NORMAL SALINE 50 ML IV SCH (05:38)
[2017-12-15] MEDS: METHYLPREDNISOLONE INJ 125 MG/2 ML SDV IV SCH (05:38)
[2017-12-15] MEDS: DOXYCYCLINE HYCLATE 100 MG in DEXTROSE 5%-WATER 250 ML IV SCH ×2 (05:39→17:21)
[2017-12-15] MEDS: ENOXAPARIN SODIUM INJ 40 MG/0.4 ML DISP.SYRIN SUBCUT SCH (09:58)
[2017-12-15] MEDS: SACUBITRIL/VALSARTAN 24 MG/26 MG TABLET PO SCH ×2 (09:58→17:22)
[2017-12-15] MEDS: METOPROLOL SUCCINATE 25 MG TAB.SR.24H PO SCH ×2 (09:59→21:50)
--- NOTE | 2017-12-15 12:07 | PDOC PROGRESS REPORT ---
Subjective Progress Note for:: 12/15/17 Subjective:: Breathing improved but still tentative. Off amiodarone drip due to bradycardia Cont BIPAP, Increase FIO2 prn Discussed CT result with patient. Reason For Visit: BILATERAL PNA,NONSUSTAINED VTACH Physical Exam Vital Signs: Temp Pulse Resp BP Pulse Ox 98.4 F 67 18 102/71 93 12/15/17 07:22 12/15/17 08:14 12/15/17 08:14 12/15/17 07:22 12/15/17 08:14 Intake & Output 12/14/17 12/15/17 12/16/17 06:59 06:59 06:59 Intake Total 2235 2805 Output Total 530 925 Balance 1705 1880 Weight 99.1 kg 100.7 kg General appearance: PRESENT: no acute distress, well-developed, well-nourished Head exam: PRESENT: atraumatic, normocephalic Eye exam: PRESENT: conjunctiva pink, EOMI, PERRLA. ABSENT: scleral icterus Ear exam: PRESENT: normal external ear exam Mouth exam: PRESENT: moist, tongue midline Neck exam: ABSENT: carotid bruit, JVD, lymphadenopathy, thyromegaly Respiratory exam: PRESENT: crackles, decreased breath sounds, rhonchi, tachypnea - mild, unlabored. ABSENT: rales, wheezes Cardiovascular exam: PRESENT: irregular rhythm, +S1, +S2. ABSENT: diastolic murmur, rubs, systolic murmur Pulses: PRESENT: normal dorsalis pedis pul Vascular exam: PRESENT: normal capillary refill GI/Abdominal exam: PRESENT: normal bowel sounds, soft. ABSENT: distended, guarding, mass, organolmegaly, rebound, tenderness Rectal exam: PRESENT: deferred Extremities exam: PRESENT: full ROM. ABSENT: calf tenderness, clubbing, pedal edema Neurological exam: PRESENT: alert, awake, oriented to person, oriented to place , oriented to time, oriented to situation, CN II-XII grossly intact. ABSENT: motor sensory deficit Psychiatric exam: PRESENT: appropriate affect, normal mood. ABSENT: homicidal ideation, suicidal ideation Skin exam: PRESENT: dry, intact, warm. ABSENT: cyanosis, rash Results Laboratory Results: 12/13/17 05:40 12/13/17 05:46 12/14/17 16:28 Carbonic Acid 1.33 HCO3/H2CO3 Ratio 18:1 ABG pH 7.36 ABG pCO2 44.2 ABG pO2 63.1 L ABG HCO3 24.3 H ABG O2 Saturation 91.2 L ABG Base Excess -1.4 FiO2 40% 12/13/17 12/13/17 12/13/17 05:46 05:46 11:20 Troponin I 0.103 Cancelled 0.086 Impressions: Chest X-Ray 12/12/17 20:19 IMPRESSION: Right basilar and left mid lung patchy airspace opacities. 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 Chest CT 12/14/17 00:00 IMPRESSION: 1. 4 CM IRREGULAR MASS IN THE LEFT MID LUNG HIGHLY SUSPICIOUS FOR MALIGNANCY. THERE ARE NUMEROUS PULMONARY NODULES THROUGHOUT BOTH LUNGS CONCERNING FOR METASTASES. 2. ATELECTASIS/INFILTRATE IN THE LUNG BASES WITH BILATERAL PLEURAL EFFUSIONS. 3. CARDIOMEGALY WITH SMALL PERICARDIAL EFFUSION. Assessment & Plan - Diagnosis (1) Atrial fibrillation Qualifiers: Atrial fibrillation type: persistent Qualified Code(s): I48.1 - Persistent atrial fibrillation Is this a current diagnosis for this admission?: Yes (2) Bilateral pneumonia Qualifiers: Pneumonia type: due to unspecified organism Lung location: unspecified part of lung Qualified Code(s): J18.9 - Pneumonia, unspecified organism Is this a current diagnosis for this admission?: Yes (3) Nonsustained ventricular tachycardia Is this a current diagnosis for this admission?: Yes (4) Troponin level elevated Is this a current diagnosis for this admission?: Yes (5) CHF (congestive heart failure) Is this a current diagnosis for this admission?: Yes (6) COPD (chronic obstructive pulmonary disease) Qualifiers: Emphysema type: unspecified Is this a current diagnosis for this admission?: Yes (7) Tobacco abuse Is this a current diagnosis for this admission?: Yes - Time Time Spent with patient: 15-24 minutes Smoking Cessation Education: 3 to 10 minutes Medications reviewed and adjusted accordingly: Yes Anticipated discharge: Home Within: within 48 hours - Inpatient Certification Based on my medical assessment, after consideration of the patient's comorbidities, presenting symptoms, or acuity I expect that the services needed warrant INPATIENT care.: Yes Medical Necessity: Need Close Monitoring Due to Risk of Patient Decompensation, Need For Continuous Telemetry Monitoring, Need for IV Antibiotics - Plan Summary Plan Summary: Patient will need biopsy to be done but is currently in atrial fibrillation with anticoagulation. Once this is controlled he should be scheduled for a biopsy. Possible pneumonia, postobstructive given the CT scan findings. We will continue with current antibiotic regiment and de-escalate as appropriate Coronary artery disease with prior history of myocardial infarction. Patient will need further evaluation and management including imaging studies, once stable. Acute hypoxemic respiratory failure likely multifactorial including underlying COPD, CHF, postobstructive pneumonia and possibly lung ca Troponin elevation likely related to CHF and cardiac dysrhythmia further workup as per cardiology once stable. .
[2017-12-15] MEDS ORDERED: METHYLPREDNISOLONE INJ 125 MG/2 ML SDV IV SCH (12:09)
--- NOTE | 2017-12-15 12:11 | Progress Note ---
Provider Note Provider Note: Started on empiric vancomycin due to gram-positive cocci in 1 blood culture bottle. I have ordered repeat blood cultures for tomorrow morning. Will follow up on that.
--- NOTE | 2017-12-15 12:58 | PDOC PROGRESS REPORT ---
Subjective Progress Note for:: 12/15/17 Subjective:: Patient had CT scan of the chest which shows deviation of the heart to the right suggesting atelectasis. In addition patient now felt to have lung malignancy with metastasis. Patient seems to be doing better with gradual improvement. Pt is denying any chest arm or neck discomfort. Patient denying any PND, orthopnea. Patient denied any sustained palpitations, dizziness, syncope, near syncope. Patient denying any fever chills. Patient denying any other significant discomfort. Patient is maintaining atrial fibrillation with controlled ventricular response , no further significant bradycardia noted. Review of systems: Rest review of systems negative. Medications: Medications have been reviewed. Reason For Visit: BILATERAL PNA,NONSUSTAINED VTACH Physical Exam Vital Signs: Temp Pulse Resp BP Pulse Ox 98.7 F 54 L 24 H 126/61 H 91 L 12/15/17 11:55 12/15/17 11:55 12/15/17 11:55 12/15/17 11:55 12/15/17 11:55 Intake & Output 12/14/17 12/15/17 12/16/17 06:59 06:59 06:59 Intake Total 2235 2805 473 Output Total 530 925 75 Balance 1705 1880 398 Weight 99.1 kg 100.7 kg Exam: GENERAL: well-nourished and in no acute distress. Alert and oriented x3 HEAD: Atraumatic, normocephalic. EYES: Pupils equal round and reactive to light, extraocular movements intact, sclera anicteric, conjunctiva are normal. ENT: TMs normal, nares patent, oropharynx clear without exudates. Moist mucous membranes. No oral ulcerations or bleeding gums noted NECK: supple without lymphadenopathy. Trachea is central. No cervical or axillary lymphadenopathy noted. Carotids are 2+, JVD WNL LUNGS: Respiration seems nonlabored, no significant accessory muscle action noted. Bibasilar fine crackles, dullness right base noted, scattered wheezing noted. CHEST: Palpation of the chest wall shows no significant chest wall tenderness. HEART: [place] METER TESTER POLYPHASE, No PSH, 1/6 TOMMY aortic area, 1/6 swanson systolic murmur mitral area, no rubs, no gallops. ABDOMEN: Soft, no significant tenderness appreciated, normoactive bowel sounds. No guarding, no rebound. No rigidity noted . No masses appreciated. EXTREMITIES: Pedal pulses are 1-2+, no calf tenderness noted. No clubbing or cyanosis. Trace to 1+ pedal edema noted NEUROLOGICAL: Focused neurological exam showed no significant neurologic deficit. Normal speech, no focal weakness appreciated. PSYCH: Normal mood, normal affect. Judgment and insight within normal limits. SKIN: No significant ecchymosis, skin is noted to be warm. MUSCULOSKELETAL EXAM: No significant acute joint swelling noted. Results Laboratory Results: 12/13/17 05:40 12/13/17 05:46 12/14/17 16:28 Carbonic Acid 1.33 HCO3/H2CO3 Ratio 18:1 ABG pH 7.36 ABG pCO2 44.2 ABG pO2 63.1 L ABG HCO3 24.3 H ABG O2 Saturation 91.2 L ABG Base Excess -1.4 FiO2 40% 12/13/17 12/13/17 12/13/17 05:46 05:46 11:20 Troponin I 0.103 Cancelled 0.086 Impressions: Chest X-Ray 12/12/17 20:19 IMPRESSION: Right basilar and left mid lung patchy airspace opacities. 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 Chest CT 12/14/17 00:00 IMPRESSION: 1. 4 CM IRREGULAR MASS IN THE LEFT MID LUNG HIGHLY SUSPICIOUS FOR MALIGNANCY. THERE ARE NUMEROUS PULMONARY NODULES THROUGHOUT BOTH LUNGS CONCERNING FOR METASTASES. 2. ATELECTASIS/INFILTRATE IN THE LUNG BASES WITH BILATERAL PLEURAL EFFUSIONS. 3. CARDIOMEGALY WITH SMALL PERICARDIAL EFFUSION. Assessment & Plan - Diagnosis (1) Atrial fibrillation Qualifiers: Atrial fibrillation type: persistent Qualified Code(s): I48.1 - Persistent atrial fibrillation Is this a current diagnosis for this admission?: Yes (2) Nonsustained ventricular tachycardia Is this a current diagnosis for this admission?: Yes (3) CHF (congestive heart failure) Is this a current diagnosis for this admission?: Yes (4) COPD (chronic obstructive pulmonary disease) Qualifiers: Emphysema type: unspecified Is this a current diagnosis for this admission?: Yes (5) Coronary artery disease Qualifiers: Coronary Disease-Associated Artery/Lesion type: tribal artery [place] vs. transplanted heart: tribal heart Associated angina: without angina Qualified Code(s): I25.10 - Atherosclerotic heart disease of tribal coronary artery without angina pectoris Is this a current diagnosis for this admission?: Yes (6) Hypertension Qualifiers: Hypertension type: essential hypertension Qualified Code(s): I10 - Essential (primary) hypertension Is this a current diagnosis for this admission?: Yes (7) Troponin level elevated Is this a current diagnosis for this admission?: Yes (8) Pneumonia Qualifiers: Pneumonia type: due to unspecified organism Laterality: unspecified laterality Lung location: unspecified part of lung Qualified Code(s): J18.9 - Pneumonia, unspecified organism Is this a current diagnosis for this admission?: Yes - Notes Notes: Patient remains in atrial fibrillation but now diagnosed to have lung malignancy with metastasis. Doubt patient will be a good candidate for any further workup as his overall prognosis may be somewhat limited. Await oncology evaluation. Atrial fibrillation: Patient was admitted with atrial fibrillation with RVR. Currently rate is well controlled. Amiodarone drip stopped overnight because of bradycardia. P.o. amiodarone also being stopped because of COPD and bradycardia. For rate control will only consider beta-regine at lower dose. May consider digoxin if needed. Continue Xarelto for chronic anticoagulation. Nonsustained ventricular tachycardia: On repeated questioning patient denied any syncope or near syncope. At this point will recommend continued monitoring. Possibly ischemic, possibly related to underlying cardiomyopathy. A 2D echocardiogram shows depressed LVEF. Will recommend optimizing therapy. CHF: Patient on chest x-ray reviews is felt to have right-sided pleural effusion. Cannot rule out atelectasis. Will consider a CT chest for further evaluation. CAD: Patient describes prior history of coronary artery disease and myocardial infarction. Troponin I is elevated. Will consider stress test but patient currently too sick to undergo this. In the absence of any chest pain, we could just make a case for medical management without pursuing a stress test, this is because now other comorbid diagnosis became evident. Hypertension: Blood pressure goal is 135/85, ELISA inhibitor/ARB/entresto preferred. Troponin I elevated: Currently recommending medical management as patient without chest pain. Troponin I elevation could be related to CHF, cardiac dysrhythmia etc. Bilateral pneumonia: This is being suspected. Continue antibiotic therapy - Time Time with patient: Greater than 35 minutes - CODE STATUS was discussed, patient remains full code. Surrogate decision-maker unchanged. Multiple medical problems were addressed. More than 50% of the time spent coordinating care, discussing management plans with involved caregivers. Management plans discussed with involved personnels. Medical decision making was of moderate to high complexity, patient's has multiple comorbidities. Medications reviewed and adjusted accordingly: Yes
[2017-12-15] MEDS: METHYLPREDNISOLONE INJ 40 MG/1 ML SDV IV SCH ×2 (13:12→21:48)
--- NOTE | 2017-12-15 17:45 | PDOC CONSULTATION ---
Consultation Consult Date: 12/15/17 Consult reason:: Hematology/Oncology consultation was requested for patient with abnormal CT chest consistent with new lung cancer. History of Present Illness Admission Date/PCP: 12/13/17 00:16 JACOB AVALOS PA-C History of Present Illness: ANSELMO CABEZAS is a 67 year old male who normally sees Dr. Terrazas. He has a history of COPD and CVA and had progressive dyspnea and cough. He presented to the hospital and was diagnosed with pneumonia. He states that the treatment here in the hospital for this has helped. His symptoms today are greatly improved. His inhaler at home was no longer working. CT scan of the chest in the ED showed a new 4 cm mass in the left mid lung with multiple bilateral subcentimeter lesions consistent with mets. He does not usually use oxygen at home. Past Medical History Cardiac Medical History: Reports: Myocardial Infarction - possible, Hyperlipidema, Hypertension Denies: Coronary Artery Disease Pulmonary Medical History: Reports: Asthma Denies: Bronchitis, Chronic Obstructive Pulmonary Disease (COPD), Pneumonia, Tuberculosis Neurological Medical History: Denies: Seizures Musculoskeltal Medical History: Denies: Arthritis Psychiatric Medical History: Reports: Depression Hematology: Denies: Anemia Past Surgical History Past Surgical History: Reports: Vascular Surgery - Left lower extremity stent Denies: Pacemaker Social History Lives with: Alone Smoking Status: Former Smoker Frequency of Alcohol Use: None Hx Recreational Drug Use: No Drugs: None Hx Prescription Drug Abuse: No Past Social History Note: He states that he was smoking until a few weeks ago when the [employer] "kicked in ". He lives with a roommate and has no biological children. There are several cats in the home. - Advance Directive Resuscitation Status: Full Code Family History Family History: Hypertension Parental Family History Reviewed: Yes - Mother and father with DM Children Family History Reviewed: NA Sibling(s) Family History Reviewed.: Yes - Brother with DM Medication/Allergy Home Medications: Albuterol Sulfate [Ventolin Hfa] 2 puff IH Q6HP PRN 12/13/17 Fluticasone/Salmeterol [Advair HFA 115-21 mcg Inhaler] 2 puff IH BID 12/13/17 Fluticasone/Salmeterol [Advair HFA 230-21 mcg Inhaler] 2 puff IH BID 09/21/18 Rivaroxaban [Xarelto] 20 mg PO QPM 12/13/17 Allergies/Adverse Reactions: No Known Allergies Allergy (Verified 05/17/16 13:30) Review of Systems Constitutional: ABSENT: fever(s) Eyes: ABSENT: visual disturbances Ears: ABSENT: hearing changes Nose, Mouth, and Throat: ABSENT: sore throat Cardiovascular: PRESENT: dyspnea on exertion Respiratory: PRESENT: cough, dyspnea Gastrointestinal: ABSENT: constipation, vomiting Genitourinary: ABSENT: dysuria Integumentary: ABSENT: rash Neurological: PRESENT: weakness - after CVA Hematologic/Lymphatic: ABSENT: lymphadenopathy Physical Exam Vital Signs: Temp Pulse Resp BP Pulse Ox 98.4 F 62 22 H 122/56 L 91 L 12/15/17 15:10 12/15/17 15:10 12/15/17 15:10 12/15/17 15:10 12/15/17 15:10 Intake & Output 12/14/17 12/15/17 12/16/17 06:59 06:59 06:59 Intake Total 2235 3355 723 Output Total 530 925 75 Balance 1705 2430 648 Weight 99.1 kg 100.7 kg General appearance: PRESENT: no acute distress, well-developed, well-nourished Exam: 67 year old male. Poorly kept. Head exam: PRESENT: normocephalic Mouth exam: PRESENT: neck supple, tongue midline Neck exam: ABSENT: lymphadenopathy, tenderness Respiratory exam: PRESENT: decreased breath sounds - Right base, unlabored Cardiovascular exam: PRESENT: RRR. ABSENT: systolic murmur GI/Abdominal exam: PRESENT: normal bowel sounds, soft. ABSENT: tenderness Extremities exam: PRESENT: +1 edema Neurological exam: PRESENT: other - Left hemiparesis Psychiatric exam: PRESENT: appropriate affect Focused psych exam: ABSENT: psychomotor agitation Skin exam: PRESENT: normal color Results Laboratory Results: 12/13/17 05:40 12/13/17 05:46 12/13/17 12/13/17 12/13/17 05:46 05:46 11:20 Troponin I 0.103 Cancelled 0.086 Impressions: Chest X-Ray 12/12/17 20:19 IMPRESSION: Right basilar and left mid lung patchy airspace opacities. 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 Chest CT 12/14/17 00:00 IMPRESSION: 1. 4 CM IRREGULAR MASS IN THE LEFT MID LUNG HIGHLY SUSPICIOUS FOR MALIGNANCY. THERE ARE NUMEROUS PULMONARY NODULES THROUGHOUT BOTH LUNGS CONCERNING FOR METASTASES. 2. ATELECTASIS/INFILTRATE IN THE LUNG BASES WITH BILATERAL PLEURAL EFFUSIONS. 3. CARDIOMEGALY WITH SMALL PERICARDIAL EFFUSION. Status: Image reviewed by me - I also printed a copy of the CT report and gave this to the patient. This was explained in detail and all questions were anwered. Assessment & Plan - Diagnosis (1) Bilateral pneumonia Qualifiers: Pneumonia type: due to unspecified organism Lung location: unspecified part of lung Qualified Code(s): J18.9 - Pneumonia, unspecified organism Is this a current diagnosis for this admission?: Yes Plan: On appropriate treatment, and appears to be responding. (2) Lung mass Is this a current diagnosis for this admission?: Yes Plan: He denies having recent CT scans for comparison. Prior CXR were reportedly negative. I discussed with the patient the fact that this looks very possibly to be cancer, but cannot know for sure without biopsy. We discussed risks/ benefits associated with biopsy at this time. Although biopsy will be needed for definitive diagnosis, patient does not wish to have a biopsy at this time. We also discussed repeating CT again in about 6 weeks for follow-up to see if this clears with treatment of the acute pneumonia. He agrees to follow up with me as an outpatient for further scans in the future. - Time Time Spent: 30 to 50 Minutes - Patient was discussed with Dr. Duckworth
[2017-12-15] MEDS: ATORVASTATIN CALCIUM 40 MG TABLET PO SCH (21:48)
[2017-12-15] MEDS: ACETAMINOPHEN 325 MG TABLET PO PRN (21:54)
[2017-12-16] MEDS: IPRATROPIUM/ALBUTEROL 0.5-2.5 MG/3 ML AMPUL NEB SCH ×4 (02:07→19:42)
[2017-12-16 05:14] LABS: HEMATOCRIT 46.9 % (37.9-51.0); HEMOGLOBIN 15.1 g/dL (13.5-17.0); MEAN CORPUSCULAR HEMOGLOBIN 31.3 pg (27.0-33.4); MEAN CORPUSCULAR HGB CONC 32.2 g/dL (32.0-36.0); MEAN CORPUSCULAR VOLUME 97 fl (80-97); PLATELET COUNT 179 10^3/uL (150-450); RED BLOOD COUNT 4.83 10^6/uL (4.35-5.55); RED CELL DISTRIBUTION WIDTH 15.2 % (11.5-14.0); WHITE BLOOD COUNT 11.6 10^3/uL (4.0-10.5)
[2017-12-16 05:40] LABS: ABSOLUTE LYMPHOCYTES# (MANUAL) 0.2 10^3/uL (0.5-4.7); ABSOLUTE MONOCYTES # (MANUAL) 0.1 10^3/uL (0.1-1.4); ABSOLUTE NEUTROPHILS# (MANUAL) 11.3 10^3/uL (1.7-8.2); BASOPHILS % (MANUAL) 0 % (0-2); EOSINOPHILS % (MANUAL) 0 % (0-6); LYMPHOCYTES % (MANUAL) 2 % (13-45); MONOCYTES % (MANUAL) 1 % (3-13); SEGMENTED NEUTROPHILS % (MAN) 97 % (42-78); TOTAL CELLS COUNTED 100
[2017-12-16 05:41] LABS: ANISOCYTOSIS 1+; PLATELET COMMENT ADEQUATE; POLYCHROMASIA 1+
[2017-12-16] MEDS: CEFTRIAXONE SODIUM 1,000 MG in NORMAL SALINE 50 ML IV SCH (05:42)
[2017-12-16 05:44] LABS: ALANINE AMINOTRANSFERASE 39 U/L (21-72); ALBUMIN 2.7 g/dL (3.5-5.0); ALKALINE PHOSPHATASE 44 U/L (38-126); ANION GAP 6 (5-19); ASPARTATE AMINO TRANSFERASE 23 U/L (17-59); BILIRUBIN,DIRECT 0.4 mg/dL (0.0-0.4); BILIRUBIN,TOTAL 0.4 mg/dL (0.2-1.3); BLOOD UREA NITROGEN 28 mg/dL (7-20); CALCIUM 8.7 mg/dL (8.4-10.2); CARBON DIOXIDE 29 mmol/L (22-30); CHLORIDE 103 mmol/L (98-107); GLUCOSE 158 mg/dL (75-110); POTASSIUM 4.3 mmol/L (3.6-5.0); SODIUM 138.4 mmol/L (137-145); TOTAL PROTEIN 5.4 g/dL (6.3-8.2)
[2017-12-16] MEDS: DOXYCYCLINE HYCLATE 100 MG in DEXTROSE 5%-WATER 250 ML IV SCH ×2 (05:45→17:51)
[2017-12-16] MEDS: METHYLPREDNISOLONE INJ 40 MG/1 ML SDV IV SCH ×3 (05:46→21:16)
[2017-12-16] MEDS: SACUBITRIL/VALSARTAN 24 MG/26 MG TABLET PO SCH ×2 (10:03→17:52)
[2017-12-16] MEDS: METOPROLOL SUCCINATE 25 MG TAB.SR.24H PO SCH ×2 (10:03→21:16)
[2017-12-16] MEDS: ENOXAPARIN SODIUM INJ 40 MG/0.4 ML DISP.SYRIN SUBCUT SCH (10:05)
--- NOTE | 2017-12-16 14:51 | PDOC PROGRESS REPORT ---
Subjective Progress Note for:: 12/16/17 Subjective:: Breathing improved but still tentative. Reason For Visit: BILATERAL PNA,NONSUSTAINED VTACH Physical Exam Vital Signs: Temp Pulse Resp BP Pulse Ox 98.2 F 73 20 100/51 L 96 12/16/17 11:25 12/16/17 14:00 12/16/17 13:17 12/16/17 11:25 12/16/17 13:17 Intake & Output 12/15/17 12/16/17 12/17/17 06:59 06:59 06:59 Intake Total 3355 2646 774 Output Total 925 325 200 Balance 2430 2321 574 Weight 100.7 kg 104.1 kg General appearance: PRESENT: no acute distress, well-developed, well-nourished Head exam: PRESENT: atraumatic, normocephalic Eye exam: PRESENT: conjunctiva pink, EOMI, PERRLA. ABSENT: scleral icterus Ear exam: PRESENT: normal external ear exam Mouth exam: PRESENT: moist, tongue midline Neck exam: ABSENT: carotid bruit, JVD, lymphadenopathy, thyromegaly Respiratory exam: PRESENT: crackles, decreased breath sounds, rhonchi. ABSENT: rales, wheezes Cardiovascular exam: PRESENT: irregular rhythm, +S1, +S2. ABSENT: diastolic murmur, rubs, systolic murmur Pulses: PRESENT: normal dorsalis pedis pul Vascular exam: PRESENT: normal capillary refill GI/Abdominal exam: PRESENT: normal bowel sounds, soft. ABSENT: distended, guarding, mass, organolmegaly, rebound, tenderness Rectal exam: PRESENT: deferred Extremities exam: PRESENT: full ROM. ABSENT: calf tenderness, clubbing, pedal edema Neurological exam: PRESENT: alert, awake, oriented to person, oriented to place , oriented to time, oriented to situation, CN II-XII grossly intact. ABSENT: motor sensory deficit Psychiatric exam: PRESENT: appropriate affect, normal mood. ABSENT: homicidal ideation, suicidal ideation Skin exam: PRESENT: dry, intact, warm. ABSENT: cyanosis, rash Results Laboratory Results: 12/16/17 04:04 12/16/17 04:04 12/16/17 12/16/17 04:04 04:04 WBC 11.6 H RBC 4.83 Hgb 15.1 Hct 46.9 MCV 97 MCH 31.3 MCHC 32.2 RDW 15.2 H Plt Count 179 Seg Neutrophils % Not Reportable Lymphocytes % Not Reportable Monocytes % Not Reportable Eosinophils % Not Reportable Basophils % Not Reportable Absolute Neutrophils Not Reportable Absolute Lymphocytes Not Reportable Absolute Monocytes Not Reportable Absolute Eosinophils Not Reportable Absolute Basophils Not Reportable Sodium 138.4 Potassium 4.3 Chloride 103 Carbon Dioxide 29 Anion Gap 6 BUN 28 H Creatinine 0.72 Est GFR ( Amer) > 60 Est GFR (Non-Af Amer) > 60 Glucose 158 H Calcium 8.7 Magnesium 1.7 Total Bilirubin 0.4 AST 23 ALT 39 Alkaline Phosphatase 44 Total Protein 5.4 L Albumin 2.7 L 12/13/17 12/13/17 12/13/17 05:46 05:46 11:20 Troponin I 0.103 Cancelled 0.086 NT-Pro-B Natriuret Pep 12/16/17 04:04 Troponin I NT-Pro-B Natriuret Pep 4340 H Impressions: Chest X-Ray 12/12/17 20:19 IMPRESSION: Right basilar and left mid lung patchy airspace opacities. 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 Chest CT 12/14/17 00:00 IMPRESSION: 1. 4 CM IRREGULAR MASS IN THE LEFT MID LUNG HIGHLY SUSPICIOUS FOR MALIGNANCY. THERE ARE NUMEROUS PULMONARY NODULES THROUGHOUT BOTH LUNGS CONCERNING FOR METASTASES. 2. ATELECTASIS/INFILTRATE IN THE LUNG BASES WITH BILATERAL PLEURAL EFFUSIONS. 3. CARDIOMEGALY WITH SMALL PERICARDIAL EFFUSION. Assessment & Plan - Diagnosis (1) Atrial fibrillation Qualifiers: Atrial fibrillation type: persistent Qualified Code(s): I48.1 - Persistent atrial fibrillation Is this a current diagnosis for this admission?: Yes (2) Bilateral pneumonia Qualifiers: Pneumonia type: due to unspecified organism Lung location: unspecified part of lung Qualified Code(s): J18.9 - Pneumonia, unspecified organism Is this a current diagnosis for this admission?: Yes (3) Nonsustained ventricular tachycardia Is this a current diagnosis for this admission?: Yes (4) Troponin level elevated Is this a current diagnosis for this admission?: Yes (5) CHF (congestive heart failure) Is this a current diagnosis for this admission?: Yes Plan: Likely chronic with acute decompensation of combined systolic and diastolic heart failure (6) COPD (chronic obstructive pulmonary disease) Qualifiers: Emphysema type: unspecified Is this a current diagnosis for this admission?: Yes (7) Tobacco abuse Is this a current diagnosis for this admission?: Yes - Time Time Spent with patient: 15-24 minutes Medications reviewed and adjusted accordingly: Yes Anticipated discharge: Home Within: within 72 hours - Inpatient Certification Based on my medical assessment, after consideration of the patient's comorbidities, presenting symptoms, or acuity I expect that the services needed warrant INPATIENT care.: Yes Medical Necessity: Need for Nebulizer Therapy and Monitoring of Response, Need for IV Antibiotics - Plan Summary Plan Summary: Patient appears to be improving. His breathing is gotten better over the last day or so. He was seen by Dr. Hillman yesterday. The plan is to follow-up with biopsy as outpatient and further intervention is appropriate. We will focus on treating his pneumonia and not getting him home at this time Echo shows left ventricular systolic function is moderately reduced will continue patient on doxycycline and ceftriaxone for his pneumonia he appears to be responding to these. We will continue to taper steroids and he will be continued on Entresto as well as Xarelto
[2017-12-16] MEDS: RIVAROXABAN 10 MG TABLET PO SCH (17:52)
[2017-12-16] MEDS: NORMAL SALINE 1000 ML 1,000 ML IV PRN (17:53)
[2017-12-16] MEDS: ATORVASTATIN CALCIUM 40 MG TABLET PO SCH (21:16)
--- NOTE | 2017-12-16 22:17 | Progress Note ---
Provider Note Provider Note: CARDIOLOGY PROGRESS NOTE by Dr. Vivian Laura on 12/16/2017. SUBJECTIVE: The patient denies any chest pain. He states his shortness breath is slightly improved. He does have orthopnea but no PND. He continues to be in atrial fibrillation with a controlled ventricular response. There is no TIA or CVA symptoms. There is no recurrence of ventricular tachycardia. The patient is not back bradycardic anymore, since stopping the amiodarone. PHYSICAL EXAM examination: The patient is mildly obese but looks chronically ill. Not appear to be in any acute distress. Selected Entries 12/16/17 12/16/17 07:21 15:11 Temperature 98.0 F 98.4 F Temperature Axillary Axillary Source Pulse Rate 71 Respiratory 22 H Rate Blood Pressure 111/76 Blood Pressure 87 Mean BP Location Right Arm BP Position Sitting O2 Sat by Pulse 93 Oximetry Oxygen Flow 4.00 Rate Oxygen Delivery Nasal Cannula Method HEAD: Head is atraumatic normocephalic. EYES: Pupils are equal round regular reactive to light accommodation, external ocular movements are normal. There is no conjunctival pallor. There is no scleral icterus. ENT is negative. NECK : Is supple. There is no JVD. Carotids are equal there is no bruits. There is no accessory muscles of respiration use. There is no lymphadenopathy. There is no goiter. Trachea central. LUNGS: There is diminished air entry and prolonged expiration throughout, with scattered rhonchi throughout. There is no rales or wheezing. There is no chest wall tenderness. There is prolonged expiration. On percussion there is hyperresonance throughout. HEART: S1-S2 is heard. S1 is of variable intensity. There is no S3 gallop there is no S4 gallop. Systolic murmur left sternal border and apex there is no rub. ABDOMEN is soft nontender there is no splenomegaly, and no hepatomegaly, and bowel sounds well heard. There is no tender areas of masses. EXTREMITIES: Femorals are diminished there is no femoral bruits. Leg pulses are diminished. There is no pedal edema. There is no DVT or cellulitis. There is no sinus or clubbing. 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 PSYCHIATRIC: The patient judgment and insight are intact his affect is normal. IMPRESSION: 12/16/17 12/16/17 12/16/17 04:04 04:04 04:04 WBC 11.6 H Hgb 15.1 Hct 46.9 Plt Count 179 Sodium 138.4 Potassium 4.3 Chloride 103 Carbon Dioxide 29 BUN 28 H Creatinine 0.72 Est GFR (Non-Af Amer) > 60 Glucose 158 H Calcium 8.7 Magnesium 1.7 Total Bilirubin 0.4 Direct Bilirubin 0.4 Neonat Total Bilirubin Not Reportable Neonat Direct Bilirubin Not Reportable Neonat Indirect Bili Not Reportable AST 23 ALT 39 Alkaline Phosphatase 44 NT-Pro-B Natriuret Pep 4340 H Total Protein 5.4 L Albumin 2.7 L IMPRESSION /space RECOMMENDATION: 1. PERSISTENT ATRIAL FIBRILLATION: At present seems to be persistent. Ventricular rate is controlled. There is no further bradycardia, since the patient is off amiodarone. Would recommend continue beta-regine. The patient in view of his diagnosis of most probably lung cancer with mets.He is on Xarelto for chronic anticoagulation therapy. 2. NONSUSTAINED VENTRICULAR tachycardia: No recurrence. Will observe for recurrence. 3. BRADYCARDIA: Resolved with stopping amiodarone. 4. COPD: Continue current anti-COPD therapy. 5. Bilateral pneumonia: Continue antibiotics, and nasal oxygen. 6. Most likely lung cancer with metastasis. Patient has been seen by oncologist. At present the patient does not want to have a biopsy, he will follow-up with the oncologist as an outpatient. 7. CORONARY ARTERY DISEASE: No anginal symptoms. Continue current therapy. 8. HYPERTENSION: Blood pressure is well controlled. Medications were reviewed. Discussed with attending physician on the case. Medical decision making is of moderate to high complexity. 40 minutes spent on this patient, with more than 50% of time spent in direct patient care. Patient' s prognosis is guarded. Will follow with you.
[2017-12-17] MEDS: IPRATROPIUM/ALBUTEROL 0.5-2.5 MG/3 ML AMPUL NEB SCH ×4 (02:11→20:03)
[2017-12-17] MEDS: NORMAL SALINE 1000 ML 1,000 ML IV PRN (04:02)
[2017-12-17] MEDS: CEFTRIAXONE SODIUM 1,000 MG in NORMAL SALINE 50 ML IV SCH (05:04)
[2017-12-17] MEDS: DOXYCYCLINE HYCLATE 100 MG in DEXTROSE 5%-WATER 250 ML IV SCH ×2 (05:50→17:36)
[2017-12-17] MEDS: METHYLPREDNISOLONE INJ 40 MG/1 ML SDV IV SCH (09:17)
[2017-12-17] MEDS: SACUBITRIL/VALSARTAN 24 MG/26 MG TABLET PO SCH ×2 (09:17→17:38)
[2017-12-17] MEDS: METOPROLOL SUCCINATE 25 MG TAB.SR.24H PO SCH ×2 (09:18→21:41)
--- NOTE | 2017-12-17 14:08 | PDOC PROGRESS REPORT ---
Subjective Progress Note for:: 12/17/17 Subjective:: Breathing improved patient is somewhat irritable He is feeling better Reason For Visit: BILATERAL PNA,NONSUSTAINED VTACH Physical Exam Vital Signs: Temp Pulse Resp BP Pulse Ox 98.5 F 24 L 22 H 109/72 94 12/17/17 11:11 12/17/17 11:11 12/17/17 11:11 12/17/17 11:11 12/17/17 11:11 Intake & Output 12/16/17 12/17/17 12/18/17 06:59 06:59 06:59 Intake Total 2646 3305 605 Output Total 325 1200 200 Balance 2321 2105 405 Weight 104.1 kg 105 kg General appearance: PRESENT: no acute distress, well-developed Head exam: PRESENT: atraumatic, normocephalic Eye exam: PRESENT: conjunctiva pink, EOMI, PERRLA. ABSENT: scleral icterus Ear exam: PRESENT: normal external ear exam Mouth exam: PRESENT: moist, tongue midline Neck exam: ABSENT: carotid bruit, JVD, lymphadenopathy, thyromegaly Respiratory exam: PRESENT: crackles, decreased breath sounds. ABSENT: rales, rhonchi, wheezes Cardiovascular exam: PRESENT: irregular rhythm, +S1, +S2. ABSENT: diastolic murmur, rubs, systolic murmur Pulses: PRESENT: normal dorsalis pedis pul Vascular exam: PRESENT: normal capillary refill GI/Abdominal exam: PRESENT: normal bowel sounds, soft. ABSENT: distended, guarding, mass, organolmegaly, rebound, tenderness Rectal exam: PRESENT: deferred Extremities exam: PRESENT: full ROM. ABSENT: calf tenderness, clubbing, pedal edema Neurological exam: PRESENT: alert, awake, oriented to person, oriented to place , oriented to time, oriented to situation, CN II-XII grossly intact. ABSENT: motor sensory deficit Psychiatric exam: PRESENT: appropriate affect, normal mood. ABSENT: homicidal ideation, suicidal ideation Skin exam: PRESENT: dry, intact, warm. ABSENT: cyanosis, rash Results Laboratory Results: 12/16/17 04:04 12/16/17 04:04 12/13/17 12/13/17 12/13/17 05:46 05:46 11:20 Troponin I 0.103 Cancelled 0.086 NT-Pro-B Natriuret Pep 12/16/17 04:04 Troponin I NT-Pro-B Natriuret Pep 4340 H Impressions: Chest X-Ray 12/12/17 20:19 IMPRESSION: Right basilar and left mid lung patchy airspace opacities. 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 Chest CT 12/14/17 00:00 IMPRESSION: 1. 4 CM IRREGULAR MASS IN THE LEFT MID LUNG HIGHLY SUSPICIOUS FOR MALIGNANCY. THERE ARE NUMEROUS PULMONARY NODULES THROUGHOUT BOTH LUNGS CONCERNING FOR METASTASES. 2. ATELECTASIS/INFILTRATE IN THE LUNG BASES WITH BILATERAL PLEURAL EFFUSIONS. 3. CARDIOMEGALY WITH SMALL PERICARDIAL EFFUSION. Assessment & Plan - Diagnosis (1) Atrial fibrillation Qualifiers: Atrial fibrillation type: persistent Qualified Code(s): I48.1 - Persistent atrial fibrillation Is this a current diagnosis for this admission?: Yes Plan: Atrial fibrillation will be secondary to underlying presumed lung cancer. Patient has been started on Xarelto. This can be reevaluated and discontinued as outpatient however I will discharge him on Xarelto. Xarelto education has been requested (2) Bilateral pneumonia Qualifiers: Pneumonia type: due to unspecified organism Lung location: unspecified part of lung Qualified Code(s): J18.9 - Pneumonia, unspecified organism Is this a current diagnosis for this admission?: Yes Plan: Likely postobstructive pneumonia. Patient has responded to current antibiotics. We will plan to discharged home in a.m. to complete a course of antibiotics (3) Nonsustained ventricular tachycardia Is this a current diagnosis for this admission?: Yes (4) Troponin level elevated Is this a current diagnosis for this admission?: Yes Plan: Secondary to acute respiratory failure as well as underlying lung disease (5) CHF (congestive heart failure) Is this a current diagnosis for this admission?: Yes Plan: Patient has moderately reduced left ventricular ejection fraction, not quantified. This is likely chronic with acute decompensation. His BNP is also elevated. Will continue with cautious Lasix and he will follow-up as outpatient (6) COPD (chronic obstructive pulmonary disease) Qualifiers: Emphysema type: unspecified Is this a current diagnosis for this admission?: Yes (7) Tobacco abuse Is this a current diagnosis for this admission?: Yes Plan: Smoking cessation advised (8) Acute respiratory failure Qualifiers: Respiratory failure complication: hypoxia and hypercapnia Qualified Code(s) : J96.01 - Acute respiratory failure with hypoxia; J96.02 - Acute respiratory failure with hypercapnia; J96.02 - Acute respiratory failure with hypercapnia; J96.02 - Acute respiratory failure with hypercapnia Is this a current diagnosis for this admission?: Yes Plan: Respiratory failure likely secondary to underlying lung mass. Patient has improved although still requiring oxygen. Ambulatory as well as room air O2 will be checked. If needed home O2 will be arranged for patient (9) Lung mass Is this a current diagnosis for this admission?: Yes Plan: Plan is to follow-up with Dr. Hillman for further management as outpatient - Time Time Spent with patient: 15-24 minutes Smoking Cessation Education: 3 to 10 minutes Medications reviewed and adjusted accordingly: Yes Anticipated discharge: Home Within: within 24 hours - Inpatient Certification Based on my medical assessment, after consideration of the patient's comorbidities, presenting symptoms, or acuity I expect that the services needed warrant INPATIENT care.: Yes Medical Necessity: Need For Continuous Telemetry Monitoring, Need for Nebulizer Therapy and Monitoring of Response, Risk of Complication if Not Cared For in Hospital
[2017-12-17] MEDS: RIVAROXABAN 10 MG TABLET PO SCH (17:36)
--- NOTE | 2017-12-17 19:42 | Progress Note ---
Provider Note Provider Note: CARDIOLOGY PROGRESS NOTE by Dr. Vivian Laura for 12/17/2017. OBJECTIVE: The patient states that shortness of breath is much improved. But he still has orthopnea. There is no PND. He continues to be in atrial fibrillation, with occasional asymptomatic episodes of heart rate in the 50s. His Lopressor was held this morning since his heart rate was in the 50s. There is no bleeding on Xarelto. There is no leg edema. There is no chest pain or discomfort. The patient is in persistent atrial fibrillation. At present the heart rate is controlled, and seems to have episodic bradycardia. There is no TIA or CVA symptoms. He has cough at times with out any production of sputum. He claims that he has occasional episodes of wheezing, but at the time of examination now there is no wheezing. PHYSICAL EXAMINATION: The patient is mildly obese, but well-groomed. In no acute distress. Selected Entries 12/17/17 12/17/17 15:08 16:00 Temperature 98.3 F Heart Rate ( 68 Monitors) Respiratory 22 H Rate Blood Pressure 108/64 Blood Pressure 78 Mean BP Location Left Arm BP Position Supine O2 Sat by Pulse 90 L Oximetry Oxygen Flow 4.00 Rate Oxygen Delivery Nasal Cannula Method HEAD: Head is atraumatic normocephalic. EYES: Pupils are equal round regular reactive to light accommodation, external ocular movements are normal. There is no conjunctival pallor. There is no scleral icterus. ENT is negative. NECK : Is supple. There is no JVD. Carotids are equal there is no bruits. There is no accessory muscles of respiration use. There is no lymphadenopathy. There is no goiter. Trachea central. LUNGS: There is diminished air entry and prolonged expiration throughout, with scattered rhonchi throughout. There is no rales or wheezing. There is no chest wall tenderness. There is prolonged expiration. On percussion there is hyperresonance throughout. HEART: S1-S2 is heard. S1 is of variable intensity. There is no S3 gallop there is no S4 gallop. Systolic murmur left sternal border and apex there is no rub. ABDOMEN is soft nontender there is no splenomegaly, and no hepatomegaly, and bowel sounds well heard. There is no tender areas of masses. EXTREMITIES: Femorals are diminished there is no femoral bruits. Leg pulses are diminished. There is no pedal edema. There is no DVT or cellulitis. There is no sinus or clubbing. 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 PSYCHIATRIC: The patient judgment and insight are intact his affect is normal. IMPRESSION/RECOMMENDATION: 1. PERSISTENT ATRIAL FIBRILLATION: At present seems to be persistent. Ventricular rate is controlled. There is no further bradycardia, since the patient is off amiodarone. Would recommend continue beta-regine. The patient in view of his diagnosis of most probably lung cancer with mets.He is on Xarelto for chronic anticoagulation therapy. 2. NONSUSTAINED VENTRICULAR tachycardia: No recurrence. Will observe for recurrence. 3. BRADYCARDIA: Resolved with stopping amiodarone. Continues to have very infrequent episodes of asymptomatic bradycardia, with a stable blood pressure. We will continue to observe. 4. COPD: Continue current anti-COPD therapy. 5. Bilateral pneumonia: Continue antibiotics, and nasal oxygen. 6. Most likely lung cancer with metastasis. Patient has been seen by oncologist. At present the patient does not want to have a biopsy, he will follow-up with the oncologist as an outpatient. 7. CORONARY ARTERY DISEASE: No anginal symptoms. Continue current therapy. 8. HYPERTENSION: Blood pressure is well controlled. Note his medications have been reviewed. Would recommend using beta-regine or a small dose and hold bradycardic. The other option would be to place the patient on pindolol. Note medical decision making is of moderate to high complexity. Note 40 minutes spent on this patient more than 50% of time spent in patient care. Surrogate healthcare decision maker is unchanged.
[2017-12-18] MEDS: IPRATROPIUM/ALBUTEROL 0.5-2.5 MG/3 ML AMPUL NEB SCH ×4 (02:02→19:37)
[2017-12-18 04:59] LABS: HEMATOCRIT 50.7 % (37.9-51.0); HEMOGLOBIN 16.8 g/dL (13.5-17.0); MEAN CORPUSCULAR HGB CONC 33.2 g/dL (32.0-36.0); MEAN CORPUSCULAR VOLUME 96 fl (80-97); PLATELET COUNT 169 10^3/uL (150-450); RED BLOOD COUNT 5.26 10^6/uL (4.35-5.55); WHITE BLOOD COUNT 10.5 10^3/uL (4.0-10.5)
[2017-12-18] MEDS: ATORVASTATIN CALCIUM 40 MG TABLET PO SCH ×2 (05:12→21:24)
[2017-12-18] MEDS: CEFTRIAXONE SODIUM 1,000 MG in NORMAL SALINE 50 ML IV SCH (05:20)
[2017-12-18 05:25] LABS: ABSOLUTE LYMPHOCYTES# (MANUAL) 0.7 10^3/uL (0.5-4.7); ABSOLUTE MONOCYTES # (MANUAL) 1.2 10^3/uL (0.1-1.4); ABSOLUTE NEUTROPHILS# (MANUAL) 8.6 10^3/uL (1.7-8.2); BASOPHILS % (MANUAL) 0 % (0-2); EOSINOPHILS % (MANUAL) 0 % (0-6); LYMPHOCYTES % (MANUAL) 5 % (13-45); MONOCYTES % (MANUAL) 11 % (3-13); SEGMENTED NEUTROPHILS % (MAN) 82 % (42-78); TOTAL CELLS COUNTED 100
[2017-12-18 05:26] LABS: ANISOCYTOSIS SLIGHT; BURR CELLS SLIGHT; OVALOCYTES SLIGHT; PLATELET COMMENT ADEQUATE; POIKILOCYTOSIS SLIGHT
[2017-12-18] MEDS: DOXYCYCLINE HYCLATE 100 MG in DEXTROSE 5%-WATER 250 ML IV SCH ×2 (05:56→17:22)
--- NOTE | 2017-12-18 09:30 | PDOC DISCHARGE SUMMARY ---
General - Admit/Disc Date/PCP Admission Date/Primary Care Provider: 12/13/17 00:16 JACOB AVALOS PA-C Discharge Date: 12/20/17 - Discharge Diagnosis (1) Atrial fibrillation Is this a current diagnosis for this admission?: Yes (2) Bilateral pneumonia Is this a current diagnosis for this admission?: Yes (3) Nonsustained ventricular tachycardia Is this a current diagnosis for this admission?: Yes (4) Troponin level elevated Is this a current diagnosis for this admission?: Yes (5) CHF (congestive heart failure) Is this a current diagnosis for this admission?: Yes (6) COPD (chronic obstructive pulmonary disease) Is this a current diagnosis for this admission?: Yes (7) Tobacco abuse Is this a current diagnosis for this admission?: Yes (8) Acute respiratory failure Is this a current diagnosis for this admission?: Yes (9) Lung mass Is this a current diagnosis for this admission?: Yes - Additional Information Resuscitation Status: Full Code Discharge Activity: Activity As Tolerated Prescriptions: Atorvastatin Calcium [Lipitor 40 mg Tablet] 40 mg PO QHS #30 tablet Cefpodoxime Proxetil [Vantin 200 mg Tablet] 1 tab PO Q12 #14 tab Metoprolol Succinate [Toprol Xl 25 mg Tab.sr] 12.5 mg PO Q12 #30 tab.sr.24h Sacubitril/Valsartan [Entresto 24 mg/26 mg Tablet] 1 tab PO BID #60 tablet Home Medications: Albuterol Sulfate [Ventolin Hfa] 2 puff IH Q6HP PRN 12/13/17 Fluticasone/Salmeterol [Advair HFA 115-21 mcg Inhaler] 2 puff IH BID 12/13/17 Fluticasone/Salmeterol [Advair HFA 230-21 mcg Inhaler] 2 puff IH BID 12/13/17 Rivaroxaban [Xarelto] 20 mg PO QPM 12/13/17 Atorvastatin Calcium [Lipitor 40 mg Tablet] 40 mg PO QHS #30 tablet 12/18/17 Cefpodoxime Proxetil [Vantin 200 mg Tablet] 1 tab PO Q12 #14 tab 12/18/17 Metoprolol Succinate [Toprol Xl 25 mg Tab.sr] 12.5 mg PO Q12 #30 tab.sr.24h Sacubitril/Valsartan [Entresto 24 mg/26 mg Tablet] 1 tab PO BID #60 tablet 12/18 History of Present Illness History of Present Illness: ANSELMO CABEZAS is a 67 year old male Hospital Course Hospital Course: This is a tentative DC summary. Please see Dc summary at discharge Physical Exam Vital Signs: Temp Pulse Resp BP Pulse Ox 97.3 F 71 28 H 143/92 H 96 12/18/17 07:36 12/18/17 07:36 12/18/17 07:36 12/18/17 07:36 12/18/17 07:36 Intake & Output 12/17/17 12/18/17 12/19/17 06:59 06:59 06:59 Intake Total 3305 2379 Output Total 1200 650 Balance 2105 1729 Weight 105 kg 105.2 kg General appearance: PRESENT: no acute distress, well-developed, well-nourished Head exam: PRESENT: atraumatic, normocephalic Eye exam: PRESENT: conjunctiva pink, EOMI, PERRLA. ABSENT: scleral icterus Ear exam: PRESENT: normal external ear exam Mouth exam: PRESENT: moist, tongue midline Neck exam: ABSENT: carotid bruit, JVD, lymphadenopathy, thyromegaly Respiratory exam: PRESENT: crackles, decreased breath sounds, rales, rhonchi. ABSENT: wheezes Cardiovascular exam: PRESENT: irregular rhythm, +S1, +S2. ABSENT: diastolic murmur, rubs, systolic murmur Pulses: PRESENT: normal dorsalis pedis pul Vascular exam: PRESENT: normal capillary refill GI/Abdominal exam: PRESENT: normal bowel sounds, soft. ABSENT: distended, guarding, mass, organolmegaly, rebound, tenderness Rectal exam: PRESENT: deferred Extremities exam: PRESENT: full ROM. ABSENT: calf tenderness, clubbing, pedal edema Neurological exam: PRESENT: alert, awake, oriented to person, oriented to place , oriented to time, oriented to situation, CN II-XII grossly intact. ABSENT: motor sensory deficit Psychiatric exam: PRESENT: appropriate affect, normal mood. ABSENT: homicidal ideation, suicidal ideation Skin exam: PRESENT: dry, intact, warm. ABSENT: cyanosis, rash Results Laboratory Results: 12/18/17 04:25 12/16/17 04:04 12/18/17 12/18/17 04:25 04:25 WBC 10.5 RBC 5.26 Hgb 16.8 Hct 50.7 MCV 96 MCH 32.0 MCHC 33.2 RDW 15.0 H Plt Count 169 Seg Neutrophils % Not Reportable Lymphocytes % Not Reportable Monocytes % Not Reportable Eosinophils % Not Reportable Basophils % Not Reportable Absolute Neutrophils Not Reportable Absolute Lymphocytes Not Reportable Absolute Monocytes Not Reportable Absolute Eosinophils Not Reportable Absolute Basophils Not Reportable Magnesium 1.8 12/13/17 12/13/17 12/13/17 05:46 05:46 11:20 Troponin I 0.103 Cancelled 0.086 NT-Pro-B Natriuret Pep 12/16/17 04:04 Troponin I NT-Pro-B Natriuret Pep 4340 H Impressions: Chest X-Ray 12/12/17 20:19 IMPRESSION: Right basilar and left mid lung patchy airspace opacities. 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 Chest CT 12/14/17 00:00 IMPRESSION: 1. 4 CM IRREGULAR MASS IN THE LEFT MID LUNG HIGHLY SUSPICIOUS FOR MALIGNANCY. THERE ARE NUMEROUS PULMONARY NODULES THROUGHOUT BOTH LUNGS CONCERNING FOR METASTASES. 2. ATELECTASIS/INFILTRATE IN THE LUNG BASES WITH BILATERAL PLEURAL EFFUSIONS. 3. CARDIOMEGALY WITH SMALL PERICARDIAL EFFUSION. Qualifiers - * PATIENT BEING DISCHARGED WITH ANY OF THE FOLLOWING DIAGNOSIS: Heart Failure Plan Time Spent: Greater than 30 Minutes
[2017-12-18] MEDS: METOPROLOL SUCCINATE 25 MG TAB.SR.24H PO SCH ×2 (09:43→21:24)
[2017-12-18] MEDS: SACUBITRIL/VALSARTAN 24 MG/26 MG TABLET PO SCH ×2 (09:43→17:21)
[2017-12-18] MEDS ORDERED: METHYLPREDNISOLONE INJ 40 MG/1 ML SDV IV SCH (10:00)
--- NOTE | 2017-12-18 16:21 | PDOC PROGRESS REPORT ---
Subjective Progress Note for:: 12/18/17 Subjective:: Breathing improved patient is somewhat irritable He is feeling better Reason For Visit: BILATERAL PNA,NONSUSTAINED VTACH Physical Exam Vital Signs: Temp Pulse Resp BP Pulse Ox 97.4 F 76 24 H 129/79 H 92 12/18/17 15:09 12/18/17 15:09 12/18/17 15:09 12/18/17 15:09 12/18/17 15:09 Intake & Output 12/17/17 12/18/17 12/19/17 06:59 06:59 06:59 Intake Total 3305 2379 604 Output Total 1200 650 200 Balance 2105 1729 404 Weight 105 kg 105.2 kg General appearance: PRESENT: no acute distress, well-developed, well-nourished Head exam: PRESENT: atraumatic, normocephalic Eye exam: PRESENT: conjunctiva pink, EOMI, PERRLA. ABSENT: scleral icterus Ear exam: PRESENT: normal external ear exam Mouth exam: PRESENT: moist, tongue midline Neck exam: ABSENT: carotid bruit, JVD, lymphadenopathy, thyromegaly Respiratory exam: PRESENT: decreased breath sounds, rhonchi. ABSENT: rales, wheezes Cardiovascular exam: PRESENT: irregular rhythm, +S1, +S2. ABSENT: diastolic murmur, rubs, systolic murmur Pulses: PRESENT: normal dorsalis pedis pul Vascular exam: PRESENT: normal capillary refill GI/Abdominal exam: PRESENT: normal bowel sounds, soft. ABSENT: distended, guarding, mass, organolmegaly, rebound, tenderness Rectal exam: PRESENT: deferred Extremities exam: PRESENT: full ROM. ABSENT: calf tenderness, clubbing, pedal edema Neurological exam: PRESENT: alert, awake, oriented to person, oriented to place , oriented to time, oriented to situation, CN II-XII grossly intact. ABSENT: motor sensory deficit Psychiatric exam: PRESENT: appropriate affect, normal mood. ABSENT: homicidal ideation, suicidal ideation Skin exam: PRESENT: dry, intact, warm. ABSENT: cyanosis, rash Results Laboratory Results: 12/18/17 04:25 12/16/17 04:04 12/18/17 12/18/17 04:25 04:25 WBC 10.5 RBC 5.26 Hgb 16.8 Hct 50.7 MCV 96 MCH 32.0 MCHC 33.2 RDW 15.0 H Plt Count 169 Seg Neutrophils % Not Reportable Lymphocytes % Not Reportable Monocytes % Not Reportable Eosinophils % Not Reportable Basophils % Not Reportable Absolute Neutrophils Not Reportable Absolute Lymphocytes Not Reportable Absolute Monocytes Not Reportable Absolute Eosinophils Not Reportable Absolute Basophils Not Reportable Magnesium 1.8 12/13/17 12/13/17 12/13/17 05:46 05:46 11:20 Troponin I 0.103 Cancelled 0.086 NT-Pro-B Natriuret Pep 12/16/17 04:04 Troponin I NT-Pro-B Natriuret Pep 4340 H Impressions: Chest X-Ray 12/12/17 20:19 IMPRESSION: Right basilar and left mid lung patchy airspace opacities. 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 Chest CT 12/14/17 00:00 IMPRESSION: 1. 4 CM IRREGULAR MASS IN THE LEFT MID LUNG HIGHLY SUSPICIOUS FOR MALIGNANCY. THERE ARE NUMEROUS PULMONARY NODULES THROUGHOUT BOTH LUNGS CONCERNING FOR METASTASES. 2. ATELECTASIS/INFILTRATE IN THE LUNG BASES WITH BILATERAL PLEURAL EFFUSIONS. 3. CARDIOMEGALY WITH SMALL PERICARDIAL EFFUSION. Assessment & Plan - Diagnosis (1) Atrial fibrillation Qualifiers: Atrial fibrillation type: persistent Qualified Code(s): I48.1 - Persistent atrial fibrillation Is this a current diagnosis for this admission?: Yes (2) Bilateral pneumonia Qualifiers: Pneumonia type: due to unspecified organism Lung location: unspecified part of lung Qualified Code(s): J18.9 - Pneumonia, unspecified organism Is this a current diagnosis for this admission?: Yes (3) Nonsustained ventricular tachycardia Is this a current diagnosis for this admission?: Yes (4) Troponin level elevated Is this a current diagnosis for this admission?: Yes (5) CHF (congestive heart failure) Is this a current diagnosis for this admission?: Yes (6) COPD (chronic obstructive pulmonary disease) Qualifiers: Emphysema type: unspecified Is this a current diagnosis for this admission?: Yes (7) Tobacco abuse Is this a current diagnosis for this admission?: Yes (8) Acute respiratory failure Qualifiers: Respiratory failure complication: hypoxia and hypercapnia Qualified Code(s) : J96.01 - Acute respiratory failure with hypoxia; J96.02 - Acute respiratory failure with hypercapnia; J96.02 - Acute respiratory failure with hypercapnia; J96.02 - Acute respiratory failure with hypercapnia Is this a current diagnosis for this admission?: Yes (9) Lung mass Is this a current diagnosis for this admission?: Yes - Time Time Spent with patient: 15-24 minutes Medications reviewed and adjusted accordingly: Yes Anticipated discharge: Home Within: within 24 hours - Inpatient Certification Based on my medical assessment, after consideration of the patient's comorbidities, presenting symptoms, or acuity I expect that the services needed warrant INPATIENT care.: Yes Medical Necessity: Need For Continuous Telemetry Monitoring, Need for IV Antibiotics - Plan Summary Plan Summary: Patient continues to make progress, will plan on dc home in am with oxygen if home conditions acceptable
[2017-12-18] MEDS ORDERED: FUROSEMIDE INJ/PF 40 MG/4 ML SDV IV ONE (16:25)
[2017-12-18] MEDS: RIVAROXABAN 10 MG TABLET PO SCH (17:21)
[2017-12-19] MEDS: IPRATROPIUM/ALBUTEROL 0.5-2.5 MG/3 ML AMPUL NEB SCH ×4 (02:51→19:36)
[2017-12-19] MEDS: CEFTRIAXONE SODIUM 1,000 MG in NORMAL SALINE 50 ML IV SCH (05:13)
[2017-12-19] MEDS ORDERED: DOXYCYCLINE HYCLATE INJ 100 MG VIAL ONE (05:23)
[2017-12-19] MEDS: DOXYCYCLINE HYCLATE 100 MG in DEXTROSE 5%-WATER 250 ML IV SCH (05:41)
[2017-12-19] MEDS ORDERED: PREDNISONE 20 MG TABLET PO SCH ×2 (10:00→13:26)
[2017-12-19] MEDS: SACUBITRIL/VALSARTAN 24 MG/26 MG TABLET PO SCH ×2 (10:23→17:35)
[2017-12-19] MEDS: METOPROLOL SUCCINATE 25 MG TAB.SR.24H PO SCH ×2 (10:23→21:12)
--- NOTE | 2017-12-19 13:21 | PDOC PROGRESS REPORT ---
Subjective Progress Note for:: 12/19/17 Subjective:: Breathing improved patient is somewhat irritable He is feeling better He is anxious to go home however his home situation remains unchanged. He has no electricity still and will be unsafe to discharge him especially since he will be going home on oxygen. Reason For Visit: BILATERAL PNA,NONSUSTAINED VTACH Physical Exam Vital Signs: Temp Pulse Resp BP Pulse Ox 97.5 F 57 L 24 H 95/51 L 91 L 12/19/17 11:22 12/19/17 11:22 12/19/17 11:22 12/19/17 11:22 12/19/17 11:22 Intake & Output 12/18/17 12/19/17 12/20/17 06:59 06:59 06:59 Intake Total 2379 1444 417 Output Total 650 2800 Balance 1729 -1356 417 Weight 105.2 kg 104.1 kg General appearance: PRESENT: no acute distress, well-developed, well-nourished Head exam: PRESENT: atraumatic, normocephalic Eye exam: PRESENT: conjunctiva pink, EOMI, PERRLA. ABSENT: scleral icterus Ear exam: PRESENT: normal external ear exam Mouth exam: PRESENT: moist, tongue midline Neck exam: ABSENT: carotid bruit, JVD, lymphadenopathy, thyromegaly Respiratory exam: PRESENT: crackles, decreased breath sounds, rhonchi, unlabored. ABSENT: rales, wheezes Cardiovascular exam: PRESENT: RRR. ABSENT: diastolic murmur, rubs, systolic murmur Pulses: PRESENT: normal dorsalis pedis pul Vascular exam: PRESENT: normal capillary refill GI/Abdominal exam: PRESENT: normal bowel sounds, soft. ABSENT: distended, guarding, mass, organolmegaly, rebound, tenderness Rectal exam: PRESENT: deferred Extremities exam: PRESENT: full ROM. ABSENT: calf tenderness, clubbing, pedal edema Neurological exam: PRESENT: alert, awake, oriented to person, oriented to place , oriented to time, oriented to situation, CN II-XII grossly intact. ABSENT: motor sensory deficit Psychiatric exam: PRESENT: appropriate affect, normal mood. ABSENT: homicidal ideation, suicidal ideation Skin exam: PRESENT: dry, intact, warm. ABSENT: cyanosis, rash Results Laboratory Results: 12/18/17 04:25 12/16/17 04:04 12/13/17 12/13/17 12/13/17 05:46 05:46 11:20 Troponin I 0.103 Cancelled 0.086 NT-Pro-B Natriuret Pep 12/16/17 04:04 Troponin I NT-Pro-B Natriuret Pep 4340 H Impressions: Chest X-Ray 12/12/17 20:19 IMPRESSION: Right basilar and left mid lung patchy airspace opacities. 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 Chest CT 12/14/17 00:00 IMPRESSION: 1. 4 CM IRREGULAR MASS IN THE LEFT MID LUNG HIGHLY SUSPICIOUS FOR MALIGNANCY. THERE ARE NUMEROUS PULMONARY NODULES THROUGHOUT BOTH LUNGS CONCERNING FOR METASTASES. 2. ATELECTASIS/INFILTRATE IN THE LUNG BASES WITH BILATERAL PLEURAL EFFUSIONS. 3. CARDIOMEGALY WITH SMALL PERICARDIAL EFFUSION. Assessment & Plan - Diagnosis (1) Atrial fibrillation Qualifiers: Atrial fibrillation type: persistent Qualified Code(s): I48.1 - Persistent atrial fibrillation Is this a current diagnosis for this admission?: Yes (2) Bilateral pneumonia Qualifiers: Pneumonia type: due to unspecified organism Lung location: unspecified part of lung Qualified Code(s): J18.9 - Pneumonia, unspecified organism Is this a current diagnosis for this admission?: Yes (3) Nonsustained ventricular tachycardia Is this a current diagnosis for this admission?: Yes (4) Troponin level elevated Is this a current diagnosis for this admission?: Yes (5) CHF (congestive heart failure) Is this a current diagnosis for this admission?: Yes (6) COPD (chronic obstructive pulmonary disease) Qualifiers: Emphysema type: unspecified Is this a current diagnosis for this admission?: Yes (7) Tobacco abuse Is this a current diagnosis for this admission?: Yes (8) Acute respiratory failure Qualifiers: Respiratory failure complication: hypoxia and hypercapnia Qualified Code(s) : J96.01 - Acute respiratory failure with hypoxia; J96.02 - Acute respiratory failure with hypercapnia; J96.02 - Acute respiratory failure with hypercapnia; J96.02 - Acute respiratory failure with hypercapnia Is this a current diagnosis for this admission?: Yes (9) Lung mass Is this a current diagnosis for this admission?: Yes - Time Time Spent with patient: 15-24 minutes Medications reviewed and adjusted accordingly: Yes Anticipated discharge: Home Within: within 24 hours - Inpatient Certification Based on my medical assessment, after consideration of the patient's comorbidities, presenting symptoms, or acuity I expect that the services needed warrant INPATIENT care.: Yes Medical Necessity: Need Close Monitoring Due to Risk of Patient Decompensation, Need for Nebulizer Therapy and Monitoring of Response
[2017-12-19] MEDS: RIVAROXABAN 10 MG TABLET PO SCH (17:32)
[2017-12-19] MEDS: ATORVASTATIN CALCIUM 40 MG TABLET PO SCH (21:12)
[2017-12-19] MEDS: DOXYCYCLINE HYCLATE 100 MG TABLET PO SCH (21:12)
[2017-12-20] MEDS: IPRATROPIUM/ALBUTEROL 0.5-2.5 MG/3 ML AMPUL NEB SCH ×3 (02:22→14:23)
[2017-12-20 05:52] LABS: ABSOLUTE LYMPHOCYTES (AUTO) 0.6 10^3/uL (0.5-4.7); ABSOLUTE MONOCYTES (AUTO) 0.7 10^3/uL (0.1-1.4); ABSOLUTE NEUT (AUTO) 7.6 10^3/uL (1.7-8.2); BASOPHILS % (AUTO) 0.1 % (0-2); EOSINOPHILS % (AUTO) 0.3 % (0-6); HEMATOCRIT 46.9 % (37.9-51.0); HEMOGLOBIN 15.5 g/dL (13.5-17.0); LYMPHOCYTES % (AUTO) 6.3 % (13-45); MEAN CORPUSCULAR HEMOGLOBIN 31.6 pg (27.0-33.4); MEAN CORPUSCULAR VOLUME 96 fl (80-97); MONOCYTES % (AUTO) 7.8 % (3-13); PLATELET COUNT 140 10^3/uL (150-450); RED BLOOD COUNT 4.89 10^6/uL (4.35-5.55); SEGMENTED NEUTROPHILS % (AUTO) 85.5 % (42-78); TOTAL CELLS COUNTED % (AUTO) 100 %; WHITE BLOOD COUNT 8.9 10^3/uL (4.0-10.5)
[2017-12-20 06:15] LABS: BLOOD UREA NITROGEN 35 mg/dL (7-20); CALCIUM 8.1 mg/dL (8.4-10.2); GLUCOSE 105 mg/dL (75-110); POTASSIUM 4.5 mmol/L (3.6-5.0)
[2017-12-20 06:21] LABS: CARBON DIOXIDE 36 mmol/L (22-30); CHLORIDE 98 mmol/L (98-107); SODIUM 137.5 mmol/L (137-145)
[2017-12-20 06:24] LABS: ANION GAP 4 (5-19)
--- NOTE | 2017-12-20 09:39 | RADIOLOGY REPORT (SQ) ---
EXAM DESCRIPTION: CHEST 2 VIEWS COMPLETED DATE/TIME: 12/20/2017 9:30 am REASON FOR STUDY: Respiratory Failure, post obstructive pna COMPARISON: CT chest dated 12/14/2017 EXAM PARAMETERS: NUMBER OF VIEWS: two views TECHNIQUE: Digital Frontal and Lateral radiographic views of the chest acquired. RADIATION DOSE: NA LIMITATIONS: none FINDINGS: LUNGS AND PLEURA: Mass in the left midlung field is again noted. There are small effusion s. Minimal left basilar atelectasis. MEDIASTINUM AND HILAR STRUCTURES: No masses or contour abnormalities. HEART AND VASCULAR STRUCTURES: Heart size is normal. No overt failure. BONES: No acute findings. HARDWARE: None in the chest. OTHER: No other significant finding. IMPRESSION: Left lung mass with small pleural effusions and basilar atelectasis. TECHNICAL DOCUMENTATION: JOB ID: [id number] [employer]- All Rights Reserved Reading location - IP/workstation name: [email or web address]
[2017-12-20] MEDS: ACETAMINOPHEN 325 MG TABLET PO PRN (10:29)
[2017-12-20] MEDS: DOXYCYCLINE HYCLATE 100 MG TABLET PO SCH (10:29)
[2017-12-20] MEDS: SACUBITRIL/VALSARTAN 24 MG/26 MG TABLET PO SCH (10:29)
[2017-12-20] MEDS: METOPROLOL SUCCINATE 25 MG TAB.SR.24H PO SCH (10:30)
--- NOTE | 2017-12-20 16:02 | PDOC DISCHARGE SUMMARY ---
General - Admit/Disc Date/PCP Admission Date/Primary Care Provider: 12/13/17 00:16 JACOB AVALOS PA-C Discharge Date: 12/20/17 - Discharge Diagnosis (1) Atrial fibrillation Is this a current diagnosis for this admission?: Yes (2) Bilateral pneumonia Is this a current diagnosis for this admission?: Yes (3) Lung mass Is this a current diagnosis for this admission?: Yes (4) Acute respiratory failure Is this a current diagnosis for this admission?: Yes (5) Nonsustained ventricular tachycardia Is this a current diagnosis for this admission?: Yes (6) CHF (congestive heart failure) Is this a current diagnosis for this admission?: Yes (7) COPD (chronic obstructive pulmonary disease) Is this a current diagnosis for this admission?: Yes - Additional Information Resuscitation Status: Full Code Discharge Diet: As Tolerated Discharge Activity: Activity As Tolerated Prescriptions: Atorvastatin Calcium [Lipitor 40 mg Tablet] 40 mg PO QHS #30 tablet Cefpodoxime Proxetil [Vantin 200 mg Tablet] 1 tab PO Q12 #14 tab Metoprolol Succinate [Toprol Xl 25 mg Tab.sr] 12.5 mg PO Q12 #30 tab.sr.24h Sacubitril/Valsartan [Entresto 24 mg/26 mg Tablet] 1 tab PO BID #60 tablet Home Medications: Albuterol Sulfate [Ventolin Hfa] 2 puff IH Q6HP PRN 12/13/17 Fluticasone/Salmeterol [Advair HFA 115-21 mcg Inhaler] 2 puff IH BID 12/13/17 Fluticasone/Salmeterol [Advair HFA 230-21 mcg Inhaler] 2 puff IH BID 12/13/17 Rivaroxaban [Xarelto] 20 mg PO QPM 12/13/17 Atorvastatin Calcium [Lipitor 40 mg Tablet] 40 mg PO QHS #30 tablet 12/18/17 Cefpodoxime Proxetil [Vantin 200 mg Tablet] 1 tab PO Q12 #14 tab 12/18/17 Metoprolol Succinate [Toprol Xl 25 mg Tab.sr] 12.5 mg PO Q12 #30 tab.sr.24h Sacubitril/Valsartan [Entresto 24 mg/26 mg Tablet] 1 tab PO BID #60 tablet 12/18 History of Present Illness History of Present Illness: ANSELMO CABEZAS is a 67 year old malewho comes to the emergency department who presents with cough and "increased weakness per my neighbor". The patient reports that he has had a cough for the past 2-3 days. He states that his neighbor was worried that he could be having a recurrent stroke as he seemed more weak than normal. Pulsoxymetrie shows patient to be saturating 86% on room air and does not normally have an oxygen requirement, was initiated on BiPAP. The patient reports that he has been taking all medications as directed. He denies any increased weakness from his baseline. He denies a fever at home. No nausea, vomiting, headache, neck pain or altered mental status. Nothing improves or worsens his symptoms. He denies any associated chest pain. In the emergency department shows nonsustained ventricular tachycardia, Cordarone 150 mg IV push given in place on amiodarone infusion. 1 L IV fluids. IV Levaquin. First set of troponin 0 0.106. 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 EKG varies from the first one with sinus rhythm at 85 beats per minutes with RBBB to atrial fibrillation 60-104. Hospital Course Hospital Course: (1) Atrial fibrillation Atrial fibrillation will be secondary to underlying presumed lung cancer. Patient has been started on Xarelto. He was also evaluated by cardiology. (2) Bilateral pneumonia Likely postobstructive pneumonia. Patient has responded to current antibiotics. Will be discharged home on antibiotics (3) Nonsustained ventricular tachycardia Evaluated by cardiology. No recurrence whatsoever. (4) Troponin level elevated Secondary to acute respiratory failure as well as underlying lung disease (5) CHF (congestive heart failure) Patient has moderately reduced left ventricular ejection fraction, not quantified. This is likely chronic with acute decompensation. His BNP is also elevated. follow-up as outpatient (6) COPD (chronic obstructive pulmonary disease) (7) Tobacco abuse Smoking cessation advised (8) Acute respiratory failure Respiratory failure likely secondary to underlying lung mass. Patient does not require oxygen for home. (9) Lung mass Plan is to follow-up with Dr. Hillman for further management as outpatient Physical Exam Vital Signs: Temp Pulse Resp BP Pulse Ox 97.6 F 69 20 116/73 98 12/20/17 07:23 12/20/17 14:23 12/20/17 14:23 12/20/17 07:23 12/20/17 08:26 Intake & Output 12/19/17 12/20/17 12/21/17 06:59 06:59 06:59 Intake Total 1444 1009 458 Output Total 2800 500 Balance -1356 509 458 Weight 229 lb 8.019 oz 225 lb 12.054 oz General appearance: PRESENT: no acute distress, well-developed, well-nourished Head exam: PRESENT: atraumatic, normocephalic Eye exam: PRESENT: conjunctiva pink, EOMI, PERRLA. ABSENT: scleral icterus Ear exam: PRESENT: normal external ear exam Mouth exam: PRESENT: moist, tongue midline Neck exam: ABSENT: carotid bruit, JVD, lymphadenopathy, thyromegaly Respiratory exam: PRESENT: clear to auscultation teresa. ABSENT: rales, rhonchi, wheezes Cardiovascular exam: PRESENT: RRR. ABSENT: diastolic murmur, rubs, systolic murmur Pulses: PRESENT: normal dorsalis pedis pul Vascular exam: PRESENT: normal capillary refill GI/Abdominal exam: PRESENT: normal bowel sounds, soft. ABSENT: distended, guarding, mass, organolmegaly, rebound, tenderness Rectal exam: PRESENT: deferred Neurological exam: PRESENT: alert, awake, oriented to person, oriented to place , oriented to time, oriented to situation, CN II-XII grossly intact. ABSENT: motor sensory deficit Psychiatric exam: PRESENT: appropriate affect, normal mood. ABSENT: homicidal ideation, suicidal ideation Results Laboratory Results: 12/20/17 04:49 12/20/17 04:49 12/20/17 12/20/17 04:49 04:49 WBC 8.9 RBC 4.89 Hgb 15.5 Hct 46.9 MCV 96 MCH 31.6 MCHC 33.0 RDW 15.0 H Plt Count 140 L Seg Neutrophils % 85.5 H Lymphocytes % 6.3 L Monocytes % 7.8 Eosinophils % 0.3 Basophils % 0.1 Absolute Neutrophils 7.6 Absolute Lymphocytes 0.6 Absolute Monocytes 0.7 Absolute Eosinophils 0.0 Absolute Basophils 0.0 Sodium 137.5 Potassium 4.5 Chloride 98 Carbon Dioxide 36 H Anion Gap 4 L BUN 35 H Creatinine 0.70 Est GFR ( Amer) > 60 Est GFR (Non-Af Amer) > 60 Glucose 105 Calcium 8.1 L 12/13/17 12/13/17 12/13/17 05:46 05:46 11:20 Troponin I 0.103 Cancelled 0.086 NT-Pro-B Natriuret Pep 12/16/17 12/20/17 04:04 04:49 Troponin I NT-Pro-B Natriuret Pep 4340 H 4440 H Impressions: Head CT 12/12/17 20:19 IMPRESSION: 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 Chest CT 12/14/17 00:00 IMPRESSION: 1. 4 CM IRREGULAR MASS IN THE LEFT MID LUNG HIGHLY SUSPICIOUS FOR MALIGNANCY. THERE ARE NUMEROUS PULMONARY NODULES THROUGHOUT BOTH LUNGS CONCERNING FOR METASTASES. 2. ATELECTASIS/INFILTRATE IN THE LUNG BASES WITH BILATERAL PLEURAL EFFUSIONS. 3. CARDIOMEGALY WITH SMALL PERICARDIAL EFFUSION. Chest X-Ray 12/20/17 08:00 IMPRESSION: Left lung mass with small pleural effusions and basilar atelectasis. Qualifiers - * PATIENT BEING DISCHARGED WITH ANY OF THE FOLLOWING DIAGNOSIS: No, Heart Failure HF Pt being discharged on ACEI for LVEF less than 40%?: Yes HF Pt being discharged on ARBS for LVEF less than 40%?: Yes HF Pt with Afib discharged with Warfarin?: Yes HF Pt discharged on evidence-based Beta [employer]:: Yes
[2017-12-20 16:27] VITALS: BP 110/64
== END 2017-12-20 17:11 | disposition home health service (06) | DRG 308 ==
LOC: ER 20:09 → EH 12-13 00:16 → 3N 12-13 03:16
PROVIDERS: ADMIT Internal Medicine; ATTEND Internal Medicine
DX: I48.1 Persistent atrial fibrillation (principal); J18.9 Pneumonia, unspecified organism; J96.01 Acute respiratory failure with hypoxia; I50.43 Acute on chronic combined systolic (congestive) and diastolic (congestive) heart failure; I47.2 Ventricular tachycardia; I11.0 Hypertensive heart disease with heart failure; E78.5 Hyperlipidemia, unspecified; J44.9 Chronic obstructive pulmonary disease, unspecified; I25.10 Atherosclerotic heart disease of native coronary artery without angina pectoris; R91.8 Other nonspecific abnormal finding of lung field; R29.810 Facial weakness; R53.1 Weakness; F32.9 Major depressive disorder, single episode, unspecified; F17.210 Nicotine dependence, cigarettes, uncomplicated; Z79.01 Long term (current) use of anticoagulants; Z79.82 Long term (current) use of aspirin; Z79.899 Other long term (current) drug therapy
CPT/HCPCS: 36415; 70450; 71045; 71046; 71250; 80048; 80053; 80307; 81001; 82803; 83735; 83880; 84484; 85025; 87040; 87077; 93005; 93010; 93306; 94660; 96360; 99291; G8978-GP; G8979-GP; J0282; J0696; J1650; J1940; J1956; J2920; J2930; J3370; J3490; J7060; J7512; J7620; S0164

== ENCOUNTER → 2018-02-11 | Outpatient (CLI) | payer MEDICAID, MEDICARE ==
--- NOTE | 2018-02-11 16:50 | RADIOLOGY REPORT (SQ) ---
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 TECHNIQUE: Dynamic and static flores scale and color images acquired of the lower extremity arteries. Additional selected spectral images recorded. ABIs not performed, left foot ulcer LIMITATIONS: None. FINDINGS: RIGHT LEG: ABIS: Not performed INFLOW ARTERIES: Normal, no obstruction evident. FEMORAL ARTERIES:Multiphasic waveforms. Normal, no velocity elevation to suggest focal stenosis. Norm al color Doppler evaluation. No aneurysm. POPLITEAL ARTERY:Multiphasic waveforms. Normal, no velocity elevation to suggest focal stenosis. Norm al color Doppler evaluation. No aneurysm. PATENT TIBIOPERONEAL TRUNK AND 3 VESSEL RUNOFF: Yes, normal vessels. TBI: Not performed. OTHER: No other significant finding. LEFT LEG: ABIS: Not performed, foot ulcer INFLOW ARTERIES: Normal, no obstruction evident. FEMORAL ARTERIES:Common femoral artery is patent.. Left profunda femoral artery has elevated peak sys tolic velocity indicating 50 to 75% stenosis. Left superficial femoral artery has multiple tandem hi gh-grade stenoses proximally, segmental occlusion along its mid 3rd, and reconstitution of the diffus karlene diseased distal superficial femoral artery at the adductor canal from multiple collaterals. POPLITEAL ARTERY:Monophasic waveforms. Normal, no velocity elevation to suggest focal stenosis. Miroslava l color Doppler evaluation. No aneurysm. PATENT TIBIOPERONEAL TRUNK AND 3 VESSEL RUNOFF: Yes, normal vessels. TBI: Not performed. OTHER: No other significant finding. IMPRESSION: No flow significant stenosis right lower extremity arterial Doppler system Flow significant stenosis proximal left profunda femoral artery. Multiple tandem left superficial fe moral artery stenoses with segmental occlusion along the mid third superficial femoral artery. Recon stitution of the superficial femoral artery distally with collaterals COMMENT: Report discussed with Dr Lolis SANTANA NORMAL: Greater than 1.0 MINIMAL DISEASE: 0.9 to 1.0 CLAUDICATION: 0.5 to 0.9 SEVERE ARTERIAL DISEASE: Less than 0.5 [facility] NORMAL: Greater than 1.0 (1.2 If Heavy Calcifications) NORMAL TO MILD ISCHEMIA: 0.8 to 1.0 MODERATE ISCHEMIA: 0.4 to 0.8 SEVERE ISCHEMIA: Less than 0.4 TECHNICAL DOCUMENTATION: JOB ID: [id number] [employer]- All Rights Reserved Reading location - IP/workstation name: [email or web address] PROGRAM [email or web address]
--- NOTE | 2018-02-11 16:55 | RADIOLOGY REPORT (SQ) ---
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 Doppler and duplex evaluation of the venous structures was performed. LIMITATIONS: None. FINDINGS: The right common femoral, superficial femoral, popliteal and infrapopliteal veins are pat ent with normal response to compression and augmentation maneuvers. On the left side, there is chronic appearing nonocclusive clot in the left superficial femoral vein. The common femoral, popliteal, and infrapopliteal veins are patent with normal response to compressi on and augmentation maneuvers. Right greater saphenous vein: Reflux along the mid third in the thigh, 1,139 milliseconds, vein measu res 5 mm in diameter. There is reflux in the right greater saphenous vein below the knee proximally, 1,113 milliseconds, ve in measures 5 mm in diameter. Right small saphenous vein: No reflux Left greater saphenous vein: Reflux along the distal third in the thigh, 2,791 milliseconds, vein eloina sures 8 mm in diameter Left small saphenous vein: No reflux OTHER: No other abnormal venous findings. Please see bilateral lower extremity arterial Doppler same date IMPRESSION: Bilateral saphenous vein reflux Left superficial femoral vein chronic nonocclusive venous thrombosis COMMENT: This report was discussed with Dr. Danielle TECHNICAL DOCUMENTATION: JOB ID: [id number] [employer]- All Rights Reserved Reading location - IP/workstation name: [email or web address]
== END ==
LOC: SP 19:18
PROVIDERS: ATTEND Preventive Medicine Undersea and Hyperbaric Medicine
DX: I73.9 Peripheral vascular disease, unspecified (principal); L97.522 Non-pressure chronic ulcer of other part of left foot with fat layer exposed
CPT/HCPCS: 93925; 93970